=== PATIENT | male | born 1995 | race Caucasian/White ===

== ENCOUNTER 2018-09-12 15:43 | Emergency (ER) | payer SELFPAY ==
[2018-09-12 15:45] VITALS: BP 156/80; PULSE 71; RESP 18; TEMP 36.1; O2SAT 99; BMI 28.6
--- NOTE | 2018-09-12 16:06 | ED.DCSUM_ITS ---
- ER Visit Summary Date of Service: 09/12/18 Chief Complaint: Left great toe ingrown toenail History of Present Illness: The patient is a 22 M no dyspnea past medical history. Patient states for the last several days he has had pain and swelling of his left great toe. Has ingrown toenail. Says this happen before. Denies any fever. Physical Examination: Vital. HEENT exam unremarkable. Lungs clear to auscultation bilaterally. Heart regular rate and rhythm no murmur. Abdomen s oft nontender. Patient moving all 4 extremities. Neurovascular intact. Specifically left ankle nontender. Left foot palpable DP pulse. Left foot neurovascularly. Able to wiggle his toes. Normal touch sensation. His left great toe on the lateral aspect is swollen and tender consistent with a ingrown toenail. There is no lymphangitic streaking. Test Results: None Emergency Department Course and Treatment: No. Let applied to the anterior surface of the left great toe. Digital block. Undermined and removed the lateral third of the great toe toenail. Chaparro tolerated procedure well. Treatment Plan: Wound care. Keflex 4 times daily for 7 days. Return if worse. Disposition: dc Impression: Ingrown and infected right great toe toenail BDigital block by ER Right great toenail partially resected by ER This note was generated with [employer] dictation software. It may contain incorrect words, spelling, and punctuation that were not noted in review of the chart prior to signing. ED Disposition - Plan for ED Patient: Disposition: Home or Assisted Living Chief Complaint: Lower Extremity Injury Instructions: ED Ingrown Toenail Excised Prescriptions: Cephalexin [Keflex] 500 mg PO Q6 #30 cap Referrals: Geo Bowers DPM [STAFF PHYSICIAN] - 1 Week if not improving Additional Instructions: Warm soaks times great toe. Antibiotic 1 pill 4 times a day till gone. Tylenol Motrin for pain. Follow-up with the manager user interface Dr. Geo Bowers if not improving.
--- NOTE | 2018-09-12 16:10 | DCINST.ED_ITS ---
ED Disposition - Plan for ED Patient: Disposition: Home or Assisted Living Chief Complaint: Lower Extremity Injury Instructions: ED Ingrown Toenail Excised Prescriptions: Cephalexin [Keflex] 500 mg PO Q6 #30 cap Referrals: Geo Bowers DPM [STAFF PHYSICIAN] - 1 Week if not improving Additional Instructions: Warm soaks times great toe. Antibiotic 1 pill 4 times a day till gone. Tylenol Motrin for pain. Follow-up with the client support associate Dr. Geo Bowers if not improving.
[2018-09-12] MEDS: Lidocaine/Epi/Tetracaine 50 ML 1 APPLIC TOPICAL (16:12)
[2018-09-12 17:58] VITALS: RESP 16
--- NOTE | 2018-09-12 18:00 | ED.RN ---
REVIEWED D/C INSTRUCTIONS, FOLLOW UP CARE, PRESCRIPTION, AND S/S THAT WOULD WARRANT A RETURN TO THE ED WITH PT. PT VERBALIZED AN UNDERSTANDING AND DENIES FURTHER QUESTIONS FOR THIS RN. PT SKIN P/W/D, RESP EVEN AND UNLABORED, PT A&O X 3, NO DISTRESS NOTED. PT AMBULATED OUT OF ED, GAIT STEADY.
== END 2018-09-12 18:01 | disposition home or self-care (01) ==
PROVIDERS: Emergency Provider Emergency Medicine; Family Provider Pediatrics; PCP Pediatrics
DX: L60.0 Ingrowing nail (principal)
CPT/HCPCS: 11750; 99283

== ENCOUNTER 2019-06-10 10:02 | Emergency (ER) | payer MEDICAID, SELFPAY ==
[2019-06-10 10:03] VITALS: BP 131/87; PULSE 93; RESP 18; TEMP 36.4; O2SAT 98; BMI 30.7
--- NOTE | 2019-06-10 10:26 | ED.DCSUM_ITS ---
- ER Visit Summary Date of Service: 06/10/19 Chief Complaint: [Injury to right great toe] History of Present Illness: The patient is a 23 M [presents to the emergency department with an injury to his right great toe that occurred prior to arrival in the emergency department. Patient states he was coming down the steps when he slipped and fell and his foot hit a concrete wall causing a laceration to his right toe. Patient also states that for several months now he has had some lumps that he is noticed over his right breast and is concerned about. He denies any real pain to the area. Denies any trauma to his chest.] Physical Examination: [HEENT-PERRLA, EOMI. Cranial nerves II through XII grossly intact. TMs clear. Mucous membranes moist. No adenopathy. Cardiovascular-regular rate and rhythm without murmur or ectopy. Right breast- patient has some mild swelling over the areole of the right breast with small lump palpated about the 12 o'clock position of the breast. No erythema noted. No discharge from the nipple noted. No wrinkling of the skin noted. Lungs-clear to auscultation, chest wall stable without crepitus or subcu emphysema Abdomen-normoactive bowel sounds, soft, nontender, no rebound or rigidity, no peritoneal signs. Extremities-intact ?4, normal range of motion, normal pulses. Patient has superficial flap-like laceration of epidermis over the pad of the great toe. No bony tenderness on exam. No deformity. Neurovascular intact.] Test Results: [None indicated] Emergency Department Course and Treatment: Patient had a clean dressing applied to the toe there was no repair that was indicated. Regarding the enlargement of the right breast and Aereola mass I recommended follow-up with primary care and possible mammography.] Treatment Plan: [We will up with primary care physician within next 3 to 5 days.] Disposition: [Discharged home in stable condition.] Impression: [Right great toe laceration-no repair necessary Mass right breast] This note was generated with [employer] dictation software. It may contain incorrect words, spelling, and punctuation that were not noted in review of the chart prior to signing ED Disposition - Plan for ED Patient: Referrals: Phi Ramsey MD [Primary Care Provider] -
--- NOTE | 2019-06-10 10:29 | ED.DEP ---
ED Disposition - Plan for ED Patient: Instructions: LACERATION, Foot Referrals: Phi Ramsey MD [Primary Care Provider] - Cornelia Gibbs MD [STAFF PHYSICIAN] - 3-5 Days Additional Instructions: Follow up with Primary care physician as I would recommend outpatient Mammography to evaluate the swelling in the right breast
== END 2019-06-10 10:46 | disposition home or self-care (01) ==
LOC: ED 10:33
PROVIDERS: Emergency Provider Emergency Medicine; Family Provider Pediatrics; PCP Pediatrics
DX: S91.111A Laceration without foreign body of right great toe without damage to nail, initial encounter (principal); W10.9XXA Fall (on) (from) unspecified stairs and steps, initial encounter; Y93.9 Activity, unspecified; Y92.9 Unspecified place or not applicable; Y99.9 Unspecified external cause status; N63.10 Unspecified lump in the right breast, unspecified quadrant
CPT/HCPCS: 99282

== ENCOUNTER 2019-07-09 15:09 | Emergency (ER) | payer MEDICAID, SELFPAY ==
[2019-07-09 15:10] VITALS: BP 143/74; PULSE 82; RESP 16; TEMP 36.6; O2SAT 99; BMI 24.4
--- NOTE | 2019-07-09 15:30 | ED.DEP ---
ED Disposition - Plan for ED Patient: Instructions: Aphthous Ulcer Prescriptions: Naproxen [Naprosyn] 500 mg PO BID PRN #20 tablet Referrals: Phi Ramsey MD [Primary Care Provider] -
--- NOTE | 2019-07-09 15:34 | ED.DCSUM_ITS ---
- ER Visit Summary Date of Service: 07/09/19 Chief Complaint: Sore in mouth History of Present Illness: The patient is a 23 M presenting with a sore in his mouth. He states he noticed this last night. He has irritation to his left inner cheek. Denies fever. Denies other complaints. Physical Examination: Vitals are stable. Patient is afebrile. Alert no acute distress. HEENT exam: left inner cheek lesion consistent with aphthous ulcer. No fluctuance. No dental tenderness. No sublingual edema. Neck is supple. Lungs are clear and equal bilaterally. Heart is regular rate and rhythm. Extremities are unremarkable. Skin is warm and dry. Remainder of exam is unremarkable. Emergency Department Course and Treatment: Lesion is consistent with aphthous ulcer. He is given Naprosyn. Advised to follow up with his primary care physician. Advised return to ED if worsening complaints. Disposition: Discharge home Impression: Aphthous ulcer This note was generated with [employer] dictation software. It may contain incorrect words, spelling, and punctuation that were not noted in review of the chart prior to signing ED Disposition - Plan for ED Patient: Instructions: Aphthous Ulcer Prescriptions: Naproxen [Naprosyn] 500 mg PO BID PRN #20 tab Prescription Printed Referrals: Phi Ramsey MD [Primary Care Provider] -
== END 2019-07-09 15:43 | disposition home or self-care (01) ==
LOC: ED 15:29
PROVIDERS: Emergency Provider Emergency Medicine; Family Provider Pediatrics; PCP Pediatrics
DX: K12.0 Recurrent oral aphthae (principal)
CPT/HCPCS: 99282

== ENCOUNTER 2019-10-18 07:57 | Emergency (ER) | payer MEDICAID, SELFPAY ==
[2019-10-18 07:58] VITALS: BP 138/79; PULSE 100; RESP 15; TEMP 36.9; O2SAT 97; BMI 28.3
--- NOTE | 2019-10-18 08:16 | ED.VISSUMM ---
- ER Visit Summary Date of Service: 10/18/19 Chief Complaint: Vomiting and diarrhea History of Present Illness: The patient is a [address] Ramsey. He reports that he is vomiting diarrhea that began today. He began vomiting approximately 1 hour ago. He is vomited twice. No blood in his emesis. He had diarrhea 3 times in the past 3 hours. No blood in his stools or black tarry stools. He reports he has an aching lower abdominal pain is 5-10 at worst and 10-10 currently. Nothing makes this better or worse. Patient denies sick contacts. Has not been camping out of the country. No possible bad food exposure. Does not drink well water. No recent antibiotic use. Physical Examination: Vitals: Stable. Afebrile. General: Well-nourished and well-developed. Head: Normocephalic atraumatic. Neck: Supple, no lymphadenopathy. No JVD. Nontender. Cardiovascular: Regular rate and rhythm. No murmurs. Respiratory: No respiratory distress. Clear to auscultation bilaterally. Abdominal: Soft, nontender, nondistended, normal bowel sounds. No guarding, rebound, or peritoneal signs. Back: Nontender. Extremities: Nontender, no edema. Skin: Normal color, no rash. Neurologic: Alert and oriented ?3. Cranial nerves II through XII are intact. Normal strength and sensation. Psych: Normal affect. Emergency Department Course and Treatment: Patient refused an IV and fluids. He was given Zofran p.o. He is resting comfortably. Treatment Plan: Patient be discharged with Zofran. Instructed to follow-up with Dr. Chamorro in 1 to 2 days if not improving. Return to the emergency department for any worsening symptoms. Disposition: To home in improved and stable condition. Impression: 1. Vomiting/diarrhea. This note was generated with [employer] dictation software. It may contain incorrect words, spelling, and punctuation that were not noted in review of the chart prior to signing ED Disposition - Plan for ED Patient: Instructions: VOMITING AND DIARRHEA, Nonspecific (Adult) Prescriptions: Ondansetron [Zofran Odt] 4 mg PO Q8H PRN PRN #10 tablet PRN Reason: Nausea Referrals: Tenzin Chamorro DO [NON CLINICAL AFFILIATE] - 1-2 Days if not improving
[2019-10-18] MEDS: Ondansetron ODT 4 MG Tablet PO (08:29)
== END 2019-10-18 08:51 | disposition home or self-care (01) ==
PROVIDERS: Emergency Provider Emergency Medicine; PCP Pediatrics
DX: R11.2 Nausea with vomiting, unspecified (principal); R10.30 Lower abdominal pain, unspecified; R19.7 Diarrhea, unspecified; R51 Headache; J45.909 Unspecified asthma, uncomplicated
CPT/HCPCS: 99283

== ENCOUNTER 2020-07-10 14:25 | Emergency (ER) | payer MEDICAID, SELFPAY ==
[2020-07-10 14:26] VITALS: BP 132/66; PULSE 90; RESP 17; TEMP 36.4; O2SAT 98; BMI 30.3
--- NOTE | 2020-07-10 14:54 | ED.VIS.GEN ---
History of Present Illness Chief Complaint: Ear Problem Narrative: This patient is a 24-year-old male who presents with right ear pain. It began about 9:00 this morning. It is sharp. At times it feels muffled. He otherwise denies any recent illness. No fever cough congestion rhinorrhea. Past Medical History - Allergies and Home Meds Allergies/Adverse Reactions: Allergies amoxicillin Allergy (Verified 07/10/20 14:26) Unknown Penicillins [PCN] Allergy (Verified 07/10/20 14:26) Unknown Primary Care Physician: Care PhysicianPat Primary [Primary Care Provider] - Past Medical History: - - None Smoking Status: Former smoker Review of Systems All systems negative except as indicated General: Denies: Fever ENT: Reports: Right ear pain. Denies: Rhinorrhea Cardiovascular: Denies: Chest pain Respiratory: Denies: Dyspnea Gastrointestinal: Denies: Nausea, Vomiting Musculoskeletal: Denies: Myalgias, Arthralgias Skin: Denies: Rash Neurological: Denies: Headache Physical Exam Vital Signs/Narrative: Vital Signs Temp Pulse Resp BP Pulse Ox 07/10/20 14:26 97.5 F L 90 17 132/66 H 98 Inital Vital Signs reviewed: Yes General: Well nourished Head: Normocephalic Eyes: EOMI ENT: TM's clear Cardiovascular: Regular rate Respiratory: No distress Skin: Normal color Neurological: Alert Psychological: Normal affect Diagnostic/Tx/Re-eval - Medical Decision Making Examination of the bilateral tympanic membranes is normal. Patient was advised on supportive care. At this time he has no evidence of cerumen impaction otitis media or otitis externa. He was advised to use anti-inflammatories. He understands to return for new or worsening symptoms. The patient was discharged. ED Disposition - Plan for ED Patient: Disposition: Home or Assisted Living Diagnosis: Otalgia Referrals: Care Physician,No Primary [Primary Care Provider] - Additional Instructions: You presented with ear pain. There is no signs of an infection. I would recommend using an anti-inflammatory like ibuprofen or Aleve. You should return for new or worsening symptoms.
[2020-07-10 15:07] VITALS: RESP 15
== END 2020-07-10 15:09 | disposition home or self-care (01) ==
PROVIDERS: Emergency Provider Emergency Medicine
DX: H92.01 Otalgia, right ear (principal); Z87.891 Personal history of nicotine dependence
CPT/HCPCS: 99282

== ENCOUNTER 2020-11-17 11:17 | Emergency (ER) | payer MEDICAID, SELFPAY ==
[2020-11-17 11:18] VITALS: BP 145/90; PULSE 60; RESP 18; TEMP 36.4; O2SAT 100; BMI 30.6
--- NOTE | 2020-11-17 11:51 | ED.VIS.GEN ---
History of Present Illness Chief Complaint: Anxiety Informant: Patient Narrative: Patient is a 24-year-old male who presents to the emergency department for feeling nauseous in the morning. He states that he started a new job 1 week ago. He is never had a job before in the past. Once he gets to work this feeling does reside. States he does not feel overly anxious prior to going in. He feels that he is doing a fine job but does feel that the work is stressful. He does mold injections at work. He does occasionally get chest discomfort but is denying any of this right now. Fevers or chills. No change in bowel movements. He has never felt this before in the past. He does not take any medications. Does occasionally smoke marijuana. No other drug use. He has occasional alcohol use. Patient does not follow with a PCP regularly. He denies any shortness of breath. No heart palpitations. Past Medical History - Allergies and Home Meds Allergies/Adverse Reactions: Allergies amoxicillin Allergy (Verified 11/17/20 11:20) Unknown Penicillins [PCN] Allergy (Verified 11/17/20 11:20) Unknown Primary Care Physician: Care Physician,No Primary [Primary Care Provider] - Prior records reviewed: Yes Past Medical History: None Surgical History: no surgical history Smoking Status: Former smoker Drugs: Marijuana Review of Systems All systems negative except as indicated General: Denies: Chills, Fever, Sweats Eyes: Denies: Visual changes - bilaterally, Diplopia ENT: Denies: Rhinorrhea, Sore throat Cardiovascular: Denies: Chest pain, Palpitations Respiratory: Denies: Dyspnea, Cough, Dyspnea on exertion Gastrointestinal: Reports: Nausea. Denies: Abdominal pain, Vomiting, Diarrhea, Melena Genitourinary: Denies: Dysuria, Hematuria, Frequency Musculoskeletal: Denies: Back pain, Extremity Pain Skin: Denies: Rash, Wounds Neurological: Denies: Headache, Weakness, Numbness Psych: Denies: Depression Physical Exam Vital Signs/Narrative: Vital Signs Temp Pulse Resp BP Pulse Ox 11/17/20 11:18 97.6 F L 60 18 145/90 H 100 Inital Vital Signs reviewed: Yes General: Well nourished, Well developed, No Acute Distress Head: Normocephalic, Atraumatic Eyes: Perrl, EOMI ENT: Moist mucous membranes, No rhinorrhea Neck: Supple, Nontender Cardiovascular: Regular rate, Regular rhythm, No murmurs Respiratory: No distress, CTA bilaterally, Chest nontender Abdomen: Soft, Nontender, Nondistended Back: Nontender, Normal Inspection Extremities: Nontender, No edema. Negative for: Calf Tenderness Skin: Normal color, No rash Neurological: Alert, Oriented x3, Cranial nerves II-XII grossly intact, Normal Strength, Normal Sensation Psychological: Normal affect, Normal Mood Diagnostic/Tx/Re-eval - Medical Decision Making Patient presents to the ED for morning nausea that resolves once he gets to work around 2 PM. This is only started since he started his new job 1 week ago. This does sound very situational. He is denying any symptoms currently. Vital signs within normal limits except for mild hypertension. I did discuss that patient needs appropriate follow-up with the PCP. Do not feel he requires any lab work or imaging at this time. This does sound anxiety related since his job is stressful and he has been going for the past week since his symptoms have been present. I did give him a PCP from our referral list as he does not have 1. Return precautions are reviewed with him. No suicidal ideations. Will discharge home in stable condition. All questions were answered. ED Disposition - Plan for ED Patient: Disposition: Home or Assisted Living Diagnosis: Nausea Instructions: ED Anxiety Reaction Referrals: Care Physician,No Primary [Primary Care Provider] - Jessi Cary DO [STAFF PHYSICIAN] - 3-5 Days
--- NOTE | 2020-11-17 12:13 | ED.RN ---
support provided to pt at [facility].
== END 2020-11-17 12:13 | disposition home or self-care (01) ==
LOC: ED 12:01
PROVIDERS: Emergency Provider Emergency Medicine
DX: F41.9 Anxiety disorder, unspecified (principal); R11.0 Nausea; I10 Essential (primary) hypertension; Z87.891 Personal history of nicotine dependence
CPT/HCPCS: 99283

== ENCOUNTER 2020-11-24 08:18 | Emergency (ER) | payer MEDICAID, SELFPAY ==
[2020-11-24 08:19] VITALS: BP 133/74; PULSE 77; RESP 16; TEMP 36.2; O2SAT 96; BMI 29.1
--- NOTE | 2020-11-24 08:45 | ED.DCSUM_ITS ---
History of Present Illness Chief Complaint: Nausea/Vomiting Informant: Patient Narrative: 24-year-old male presenting with nausea/vomiting x1 this morning. Patient was seen on 11/17/2020 for similar symptoms. Patient is followed up with his primary care physician on an outpatient basis he provided omeprazole which he is not taking. Patient states that he ate a sausage egg and cheese sandwich just before bed last night. Patient woke up with dyspepsia and nausea. He vomited only once. He states he had some cramping in his abdomen which is now resolved. Patient denies fever, chills. Patient had recent lab work outpatient which was normal. Patient also admits to smoking marijuana daily. Past Medical History - Allergies and Home Meds Allergies/Adverse Reactions: Allergies amoxicillin Allergy (Verified 11/24/20 08:19) Unknown Penicillins [PCN] Allergy (Verified 11/24/20 08:19) Unknown Primary Care Physician: Care Physician,No Primary [Primary Care Provider] - Past Medical History: - - GERD, anxiety, migraines Surgical History: no surgical history Lives: With Family Smoking Status: Former smoker Alcohol: None Drugs: Marijuana Review of Systems General: Denies: Chills, Fever, Sweats Eyes: Denies: Visual changes - bilaterally, Diplopia ENT: Denies: Rhinorrhea, Sore throat Cardiovascular: Denies: Chest pain, Palpitations Respiratory: Denies: Dyspnea, Cough, Dyspnea on exertion Gastrointestinal: Reports: Abdominal pain, Nausea, Vomiting. Denies: Diarrhea, Constipation Genitourinary: Denies: Dysuria, Hematuria, Frequency Musculoskeletal: Denies: Back pain, Extremity Pain Skin: Denies: Rash, Wounds Neurological: Denies: Headache, Weakness, Numbness Psych: Denies: Depression, Anxiety, Suicidal thoughts, Suicidal ideations, -, - Physical Exam Vital Signs/Narrative: Vital Signs Temp Pulse Resp BP Pulse Ox 11/24/20 08:19 97.2 F L 77 16 133/74 H 96 General: Well nourished, Well developed, No Acute Distress Head: Normocephalic, Atraumatic Eyes: Perrl, EOMI ENT: Moist mucous membranes, No rhinorrhea Neck: Supple, Nontender Cardiovascular: Regular rate, Regular rhythm, No murmurs Respiratory: No distress, CTA bilaterally, Chest nontender Abdomen: Soft, Nontender, Nondistended, Normal bowel sounds Skin: Normal color, No rash. Negative for: Diaphoresis, Jaundice Neurological: Alert, Oriented x3, Cranial nerves II-XII grossly intact, Normal Strength, Normal Sensation Psychological: Normal affect, Normal Mood Diagnostic/Tx/Re-eval - Medical Decision Making 24-year-old male presenting with nausea/vomiting he has a history of recent diagnosis of GERD. He had 1 episode of vomiting and is now pain and nausea free. Patient had outpatient lab work 2 days ago which showed a white blood cell count of 5.87, hemoglobin 15.2, hematocrit 47.2, platelets 261. CMP showed bilirubin 0.4, alk phos 72, AST 18, Leukos 92, BUN 10, creatinine 1.11, potassium 4.0 GFR greater than 60. Patient was given Zofran ODT while researching lab work. After reviewing the lab work patient was offered repeat labs and possibly imaging if necessary although he declines. He feels improved after Zofran. I did psychosocial rehabilitation counselor him that with acid reflux he should try to not eat directly before bed. He is counseled to take his omeprazole daily. Patient also counseled that there is a possibility that smoking marijuana could be making him nauseous and he should discontinue this to see if this improves his nausea. Patient will follow up with his PCP on an outpatient basis. Impression: 1. Nausea vomiting 2. History of GERD 3. Abdominal cramping resolved ED Disposition - Plan for ED Patient: Disposition: Home or Assisted Living Instructions: ED Vomiting (Adult), ED GERD (Adult) Referrals: Care Physician,No Primary [Primary Care Provider] -
[2020-11-24] MEDS: Ondansetron ODT 4 MG Tablet PO (08:53)
== END 2020-11-24 09:29 | disposition home or self-care (01) ==
LOC: ED 09:08
PROVIDERS: Emergency Provider Student in an Organized Health Care Education/Training Program
DX: R11.2 Nausea with vomiting, unspecified (principal); K21.9 Gastro-esophageal reflux disease without esophagitis; F41.9 Anxiety disorder, unspecified; G43.909 Migraine, unspecified, not intractable, without status migrainosus; Z79.899 Other long term (current) drug therapy; Z87.891 Personal history of nicotine dependence
CPT/HCPCS: 99283

== ENCOUNTER 2021-02-21 17:34 | Emergency (ER) | payer MEDICAID, SELFPAY ==
[2021-02-21 17:36] VITALS: BP 120/70; PULSE 80; RESP 16; TEMP 36.7; O2SAT 99; BMI 29.0
--- NOTE | 2021-02-21 18:40 | ED.VIS.GI ---
HPI HPI - GI History of Present Illness Chief Complaint: Nausea/Vomiting/Diarrhea Informant: patient Narrative Narrative: Patient has nausea, vomiting and diarrhea. It started this morning. He has vomited every couple of hours today. He has had diarrhea with it. This afternoon he developed some abdominal cramping. He did not check his temperature at home. He denies any history of abdominal surgeries. He took nothing for his symptoms. He denies any sick contacts. He states that he feels weak PFSH PFSH Home Medications omeprazole 40 mg PO DAILY 11/24/20 [History Last Taken Unknown] ondansetron 4 mg PO Q8H PRN PRN #10 tablet 11/24/20 [Rx Last Taken Unknown] dicyclomine 20 mg PO TIDAC #20 capsule 02/21/21 [Rx Last Taken Unknown] ondansetron 8 mg PO Q8H PRN PRN #20 tab 02/21/21 [Rx Last Taken Unknown] Allergy/AdvReac Type Severity Reaction Status Date / Time amoxicillin Allergy Unknown Verified 02/21/21 17:36 Penicillins [PCN] Allergy Unknown Verified 02/21/21 17:36 Surgical History (Updated 02/21/21 @ 19:05 by Mike Mathis) History of tonsillectomy Social History Smoking Status: Former smoker ROS ROS ED Constitutional Constitutional ED: Denies chills or fever(s) Eyes Eyes: Denies blurry vision, change in vision or diplopia ENT ENT ED: Denies ear pain, rhinorrhea or sore throat Cardiovascular Cardiovascular: Denies chest pain or palpitations Respiratory/Chest Respiratory/Chest: Denies cough, dyspnea or sputum Gastrointestinal Gastrointestinal: Reports abdominal pain, diarrhea, nausea and vomiting Genitourinary Genitourinary ED: Denies dysuria, hematuria or urinary frequency Musculoskeletal Musculoskeletal: Denies back pain or neck pain Integumentary Denies change in pigmentation or rash Neurologic Neurologic: Denies headache(s), numbness or weakness Psychiatric Psychiatric: Denies anxiety or depression Endocrine Endocrinology: Denies polydipsia or polyuria EXAM Physical Exam Const Vital Signs: 02/21/21 17:36 02/21/21 19:07 02/21/21 19:09 Temperature 98.0 F 98.0 F Temperature Source Temporal Temporal Pulse Rate 80 68 79 Respiratory Rate 16 16 14 Blood Pressure 120/70 136/73 H 136/73 H Blood Pressure Mean 86 94 94 Pulse Ox 99 98 100 Oxygen Delivery Method Room Air Room Air Room Air Positive well nourished and well developed General Appearance ED: well developed and NAD HEENT Reports moist mucous membranes normocephalic and atraumatic; Negative for tenderness Eyes PERRL and EOMs intact bilaterally Neck supple and no JVD Chest Wall Chest: Negative for tenderness Resp normal respiratory effort and clear to auscultation bilaterally Effort and Inspection: Negative for respiratory distress Cardio regular rate, regular rhythm and no murmurs Rate: regular rate Rhythm: regular rhythm GI soft to palpation, non-tender and non-distended Palpation: soft Back/Spine no CVA tenderness and no thoracic nor lumbar tenderness Cervical Spine: Negative for cervical spine tenderness Extremity normal to inspection and full ROM General Extremety ED: Negative for tenderness Neuro oriented x3, CN's II-XII intact bilaterally and no sensory deficits noted Sensorium / Orientation: awake and alert Motor Exam: strength 5/5 throughout Psych mental status grossly normal Skin no rashes or lesions noted MDM MDM MDM Narrative Medical decision making narrative: Patient was given oral Zofran and Bentyl. Labs are normal. This is likely gastroenteritis. Patient will be given Bentyl and Zofran for home. Lab Data Labs: Laboratory Results - last 24 hr 02/21/21 02/21/21 18:56 18:56 WBC 8.9 RBC 5.69 Hgb 15.8 Hct 48.1 MCV 84.5 MCH 27.8 MCHC 32.8 RDW Std Deviation 39.3 RDW Coeff of Baltazar 12.7 Plt Count 220 MPV 11.0 Immature Gran % (Auto) 0.100 Neut % (Auto) 87.2 H Lymph % (Auto) 7.2 L [place] % (Auto) 5.0 Eos % (Auto) 0.3 Baso % (Auto) 0.2 Absolute Neuts (auto) 7.7 Absolute Lymphs (auto) 0.64 L Nucleated RBC % 0 Sodium 138 Potassium 3.8 Chloride 104 Carbon Dioxide 25.0 Anion Gap 9 BUN 10 Creatinine 1.12 Estim Creat Clear Calc 108.32 Est GFR (MDRD) Af Amer 104 Est GFR (MDRD) Non-Af 86 BUN/Creatinine Ratio 8.9 L Glucose 99 Calcium 9.5 Total Bilirubin 0.60 AST 11 L ALT 23 Alkaline Phosphatase 81 Total Protein 7.5 Albumin 4.2 Globulin 3.3 Albumin/Globulin Ratio 1.3 Lipase 40 L Discharge Plan Triage Chief Complaint: Nausea/Vomiting/Diarrhea ED Provider: Carl Kessler Dx/Rx/DC Orders Clinical Impression: Nausea vomiting and diarrhea Instructions: ED Vomiting and Diarrhea ... Prescriptions: New ondansetron [ondansetron] 4 MG tablet 8 mg PO Q8H PRN PRN (Reason: Nausea) Qty: 20 RF: 0 dicyclomine 10 MG capsule 20 mg PO TIDAC Qty: 20 RF: 0 No Action omeprazole 40 MG capsule,delayed release(DR/EC) 40 mg PO DAILY RF: 0 ondansetron 4 MG tablet 4 mg PO Q8H PRN PRN (Reason: Nausea) Qty: 10 RF: 0 Primary Care Provider: Jaclyn Chin Referrals: Jaclyn Chin, RODOLFO [Primary Care Provider] - Disposition Disposition: Home, self care
[2021-02-21 19:07] VITALS: BP 136/73; PULSE 68; RESP 16; O2SAT 98
[2021-02-21] MEDS: Dicyclomine 10 MG Capsule 20 MG PO (19:07)
[2021-02-21 19:08] LABS: Absolute Lymphocyte Count 0.64 X10^3/uL (0.83-4.51); Absolute Neutrophil Count 7.7 X10^3/uL (2.0-7.7); Basophil# 0.02 X10^3/uL; Basophil% 0.2 % (0-1); Eosinophil# 0.03 X10^3/uL; Eosinophils% 0.3 % (0-5); Hematocrit 48.1 % (40-54); Hemoglobin 15.8 g/dL (13.0-16.5); Lymphocyte # 0.64 X10^3/ul (0.83-4.51); Lymphocyte % 7.2 % (19-41); Mean Corp Hgb Conc 32.8 g/dL (32-36); Mean Corpuscular Hgb 27.8 pg (27.0-32.0); Mean Corpuscular Volume 84.5 fL (80-94); Monocyte# 0.44 X10^3/uL; NRBC Flagged by Analyzer 0 % (0-5); Neutrophil # 7.72 X10^3/uL (2.7-7.7); Neutrophil % 87.2 % (47-70); Platelet Count 220 K/mm3 (150-450); RBC Distribution Width CV 12.7 % (11.6-14.6); RBC Distribution Width SD 39.3 fl (35.1-43.9); Red Blood Count 5.69 M/mm3 (4.6-6.2); White Blood Count 8.9 K/mm3 (4.4-11.0)
[2021-02-21] MEDS: Ondansetron ODT 4 MG Tablet 8 MG PO (19:08)
[2021-02-21 19:09] VITALS: BP 136/73; PULSE 79; RESP 14; TEMP 36.7; O2SAT 100
[2021-02-21 19:44] LABS: ALB/GLOB Ratio 1.3 RATIO (0.9-2.4); AST(SGOT) 11 U/L (15-37); Alanine Aminotransfer ALT/SGPT 23 U/L (16-61); Albumin, Serum 4.2 g/dL (3.2-5.0); Alkaline Phosphatase 81 U/L (45-117); Anion Gap 9 (5-15); BUN 10 mg/dL (7-18); BUN/Creat Ratio 8.9 RATIO (10-20); Calcium,Total 9.5 mg/dL (8.5-10.1); Chloride 104 mmol/L (98-107); Creatinine, Serum 1.12 mg/dL (0.70-1.30); EST Glomerular Filtration Rate 86 mL/min (>60); Est Glom Filt Rate - Afr Amer 104 mL/min (>60); Estimated Creatinine Clearance 108.32 ml/min; Globulin 3.3 g/dL (2.2-4.2); Glucose 99 mg/dL (74-106); Lipase 40 U/L (73-393); Potassium 3.8 mmol/L (3.5-5.1); Protein, Total 7.5 g/dL (6.4-8.2); Sodium Level 138 mmol/L (136-145)
[2021-02-21 20:12] VITALS: BP 133/64; PULSE 74; RESP 16; TEMP 36.4; O2SAT 99
== END 2021-02-21 20:13 | disposition home or self-care (01) ==
PROVIDERS: Emergency Provider Emergency Medicine; PCP Physician Assistant
DX: R11.2 Nausea with vomiting, unspecified (principal); R19.7 Diarrhea, unspecified; R10.9 Unspecified abdominal pain; R53.1 Weakness; Z79.899 Other long term (current) drug therapy; Z87.891 Personal history of nicotine dependence
CPT/HCPCS: 80053; 83690; 85025; 99283; A4216

== ENCOUNTER 2021-03-21 14:13 | Emergency (ER) | payer MEDICAID, SELFPAY ==
[2021-03-21 14:13] VITALS: BP 139/91; PULSE 82; RESP 18; TEMP 36.1; O2SAT 98; BMI 33.5
--- NOTE | 2021-03-21 15:50 | RAD_ITS ---
STUDY: X-RAY - LEFT FOOT CLINICAL: Male, 25 years old. left great toe injury TECHNIQUE: 3 view(s) of the foot. COMPARISON: None. FINDINGS: Normal talus, calcaneus, and tarsal bones. Normal visualized subtalar, talonavicular, calcaneocuboid, tarsal and tarsometatarsal articulations. Normal metatarsi. Normal metatarsophalangeal joint of the great toe. Normal tibial and fibular sesamoid bones. Normal interphalangeal joint of the great toe. Normal phalanges of the great toe. Normal second through fifth metatarsophalangeal joints. Normal interphalangeal joints and phalanges of the lesser toes. The soft tissue structures are unremarkable. There is no demonstrated fracture. RAD/Foot min 3 Views IMPRESSION: Normal x-ray examination of the foot. Electronically Signed: Ryne Robison MD at 16:48 EDT , Service support ,
--- NOTE | 2021-03-21 16:15 | EX.ED.DYSGE1 ---
HPI History of Present Illness Chief Complaint: Lower Extremity Injury Informant: patient Narrative Narrative: Patient is a 25-year-old previously healthy male who presents to the emergency department for left great toe injury. He states that he was running last night whenever he tripped and fell like he stubbed his toe. 1 at rest the pain is only 2 out of 10 but hurts every time he tries to walk on it. Is not take anything for it. Denies any other injury. Majority the pain is over the great toe and dorsal aspect of the distal foot on that side. No pain going up the extremity. No loss of sensation. PFSH PFSH Home Medications omeprazole 40 mg PO DAILY 11/24/20 [History Last Taken Unknown] ondansetron 4 mg PO Q8H PRN PRN #10 tablet 11/24/20 [Rx Last Taken Unknown] dicyclomine 20 mg PO TIDAC #20 capsule 02/21/21 [Rx Last Taken Unknown] ondansetron 8 mg PO Q8H PRN PRN #20 tab 02/21/21 [Rx Last Taken Unknown] Allergy/AdvReac Type Severity Reaction Status Date / Time amoxicillin Allergy Unknown Verified 03/21/21 14:28 Penicillins [PCN] Allergy Unknown Verified 03/21/21 14:28 Surgical History (Updated 02/21/21 @ 19:05 by Mike Mathis) History of tonsillectomy Social History Smoking Status: Former smoker ROS ROS ED Constitutional Constitutional ED: Denies chills or fever(s) ENT ENT ED: Denies epistaxis Cardiovascular Cardiovascular: Denies chest pain Respiratory/Chest Respiratory/Chest: Denies cough or dyspnea Gastrointestinal Gastrointestinal: Denies abdominal pain, nausea or vomiting Musculoskeletal Musculoskeletal: Reports other Details: Toe pain ; Denies back pain or neck pain Integumentary Denies abscess or rash Neurologic Neurologic: Denies dizziness, headache(s) or weakness EXAM Physical Exam Const Vital Signs: 03/21/21 14:13 03/21/21 17:12 Temperature 97 F L Temperature Source Temporal Pulse Rate 82 Respiratory Rate 18 16 Blood Pressure 139/91 H Blood Pressure Mean 107 Pulse Ox 98 Oxygen Delivery Method Room Air Positive well nourished and well developed General Appearance ED: well developed and NAD HEENT Reports normocephalic, head/scalp atraumatic and moist mucous membranes Eyes PERRL and EOMs intact bilaterally Neck supple Chest Wall inspection of chest normal Resp normal respiratory effort and clear to auscultation bilaterally Auscultation: Negative for rales, rhonchi or wheezes Cardio regular rate, regular rhythm and no murmurs Extremity Extremity Narrative: Full range of motion of toes and left foot. There is some swelling and erythema over the right proximal joint of the great toe. Sensation intact. Brisk capillary refill. 2+ DP pulse. No pain over the base of fifth metatarsal. No ankle pain. Neuro no sensory deficits noted Sensorium / Orientation: alert Motor Exam: strength 5/5 throughout Psych mental status grossly normal Skin no rashes or lesions noted MDM MDM MDM Narrative Medical decision making narrative: Patient presents to the emerge department for left great toe pain after stubbing it while running yesterday. Patient in no distress on exam. Will check x-ray of the foot. Patient's x-ray did not reveal acute traumatic findings. Will recommend symptomatic treatment in the meantime. He can weight-bear as tolerated. Recommend RICE as well as Tylenol/ibuprofen. He is discharged home in stable condition. He is to follow-up with his PCP. Return precautions reviewed. He understands and is agreeable this plan. Radiography Diagnostic Testing: Radiology Impression Foot X-Ray 03/21/21 15:50 IMPRESSION: Normal x-ray examination of the foot. Electronically Signed: Ryne Robison MD at 16:48 EDT , Service support , X-ray of the foot interpreted by myself. No obvious fracture or dislocation appreciated. Discharge Plan Triage Chief Complaint: Lower Extremity Injury ED Provider: Lance Moctezuma Dx/Rx/DC Orders Clinical Impression: Injury of toe Instructions: ED Toe Sprain Prescriptions: No Action omeprazole 40 MG capsule,delayed release(DR/EC) 40 mg PO DAILY RF: 0 ondansetron 4 MG tablet 4 mg PO Q8H PRN PRN (Reason: Nausea) Qty: 10 RF: 0 ondansetron [ondansetron] 4 MG tablet 8 mg PO Q8H PRN PRN (Reason: Nausea) Qty: 20 RF: 0 dicyclomine 10 MG capsule 20 mg PO TIDAC Qty: 20 RF: 0 Primary Care Provider: Jaclyn Chin Referrals: Jaclyn Chin, [place] [Primary Care Provider] - 1 Week if not improving Disposition Disposition: Home, Self Care Discharge Date/Time: 03/21/21 17:12
[2021-03-21 17:12] VITALS: RESP 16
== END 2021-03-21 17:12 | disposition home or self-care (01) ==
LOC: ED 17:07
PROVIDERS: Emergency Provider Emergency Medicine; PCP Physician Assistant
DX: S99.922A Unspecified injury of left foot, initial encounter (principal); W01.0XXA Fall on same level from slipping, tripping and stumbling without subsequent striking against object, initial encounter; Y93.02 Activity, running; Y92.9 Unspecified place or not applicable; Y99.9 Unspecified external cause status; Z87.891 Personal history of nicotine dependence; Z79.899 Other long term (current) drug therapy
CPT/HCPCS: 73630; 99283

== ENCOUNTER 2021-09-10 08:00 | Emergency (ER) | payer MEDICAID, SELFPAY ==
[2021-09-10 08:01] VITALS: BP 129/78; PULSE 59; RESP 16; TEMP 36.6; O2SAT 98; BMI 33.5
--- NOTE | 2021-09-10 08:22 | ED.VIS.GI ---
HPI HPI - GI History of Present Illness Chief Complaint: Abd Pain Informant: patient Abdominal Pain/Flank Pain Onset: Hours (6) Context: Sudden Onset Timing: Continuous Quality: Aching and Cramping Location: Diffuse Worsened by: - (Laying down and laying on left side) Relieved by: Nothing Nausea/Vomiting/Emesis GI Symptom: Negative for Nausea and Vomiting Quality: Negative for Coffee ground and Hematemesis Diarrhea/Melena/Hematochezia GI Symptom: Negative for Diarrhea, Melena and Hematochezia Stool Quality: Positive for Watery Narrative Narrative: Patient presents with nausea, vomiting, diarrhea, and abdominal pain that began approximately 6 hours prior to arrival. Patient states his pain is cramping and aching. Patient states that is diffuse across his abdomen. Patient states it is worse when he lays down and lays on his left side. Patient states nothing seems to help with it. Patient denies any melena or hematochezia. Patient denies any hematemesis or coffee-ground emesis. Patient denies any urinary complaints. Patient admits to marijuana use approximately 9 hours prior to arrival. [facility] Medical History no medical history no medical history Home Medications NK 09/10/21 [History Last Taken Unknown] Allergy/AdvReac Type Severity Reaction Status Date / Time amoxicillin Allergy Unknown Verified 09/10/21 08:03 Penicillins [PCN] Allergy Unknown Verified 09/10/21 08:03 Surgical History History of tonsillectomy Social History Smoking Status: Former smoker ROS ROS ED Constitutional Constitutional ED: Reports chills and subjective; Denies fever(s) Eyes Eyes: Denies blurry vision or change in vision ENT ENT ED: Denies rhinorrhea or sore throat Cardiovascular Cardiovascular: Denies chest pain or palpitations Respiratory/Chest Respiratory/Chest: Denies cough or dyspnea Gastrointestinal Gastrointestinal: Reports abdominal pain, diarrhea, nausea and vomiting; Denies melena Genitourinary Genitourinary ED: Denies dysuria or hematuria Musculoskeletal Musculoskeletal: Denies back pain or neck pain Integumentary Denies abscess or rash Neurologic Neurologic: Reports headache(s); Denies weakness Allergic/Immunologic Allergic/Immunologic ED: Denies mouth swelling or urticaria EXAM Physical Exam Const Vital Signs: 09/10/21 08:01 Temperature 97.8 F Temperature Source Temporal Pulse Rate 59 L Respiratory Rate 16 Blood Pressure 129/78 H Blood Pressure Mean 95 Pulse Ox 98 Oxygen Delivery Method Room Air Positive well nourished and well developed General Appearance ED: well developed HEENT Reports moist mucous membranes Neck supple and no JVD Resp normal respiratory effort and clear to auscultation bilaterally Cardio regular rate, regular rhythm and no murmurs GI normal to inspection, nondistended, normoactive bowel sounds Palpation: soft and tender epigastric and LUQ; Negative for guarding or rebound tenderness present Extremity normal to inspection General Extremety ED: Negative for edema or tenderness General Extremity: Negative for edema Neuro oriented x3, CN's II-XII intact bilaterally and no sensory deficits noted Sensorium / Orientation: alert Motor Exam: strength 5/5 throughout Psych mental status grossly normal Skin no rashes or lesions noted MDM MDM MDM Narrative Medical decision making narrative: Please given Zofran. CBC and comprehensive metabolic profile were within normal limits. Lipase was normal. Patient is feeling better on reevaluation. Patient was advised of his findings. Patient was instructed to start with small amounts of liquids and advance his diet as tolerated. Patient was instructed to follow-up with his primary care physician in 3 to 5 days. Patient understood and was agreeable with the plan. All questions were answered. Lab Data Attestation: I reviewed the patient's lab results. Labs: Laboratory Results - last 24 hr 09/10/21 09/10/21 08:46 08:46 WBC 7.4 RBC 5.23 Hgb 14.4 Hct 44.0 MCV 84.1 MCH 27.5 MCHC 32.7 RDW Std Deviation 38.5 RDW Coeff of Baltazar 12.6 Plt Count 236 MPV 11.2 Immature Gran % (Auto) 0.300 Neut % (Auto) 69.9 Lymph % (Auto) 19.4 [place] % (Auto) 8.7 Eos % (Auto) 1.4 Baso % (Auto) 0.3 Absolute Neuts (auto) 5.2 Absolute Lymphs (auto) 1.43 Nucleated RBC % 0 Sodium 143 Potassium 3.9 Chloride 109 H Carbon Dioxide 28.0 Anion Gap 6 BUN 11 Creatinine 1.13 Estim Creat Clear Calc 107.36 Est GFR (MDRD) Af Amer 102 Est GFR (MDRD) Non-Af 84 BUN/Creatinine Ratio 9.7 L Glucose 111 H Calcium 9.2 Total Bilirubin 0.30 AST 11 L ALT 22 Alkaline Phosphatase 73 Total Protein 6.9 Albumin 3.8 Globulin 3.1 Albumin/Globulin Ratio 1.2 Lipase 79 Discharge Plan Triage Chief Complaint: Abd Pain ED Provider: James Alarcon Dx/Rx/DC Orders Clinical Impression: Nausea vomiting and diarrhea Instructions: ED Vomiting (Adult) Prescriptions: No Action NK RF: 0 Primary Care Provider: Jaclyn Chin Referrals: Jaclyn Chin PA [Primary Care Provider] - 3-5 Days Disposition Disposition: Home, Self Care
[2021-09-10 08:55] LABS: Absolute Lymphocyte Count 1.43 X10^3/uL (0.83-4.51); Absolute Neutrophil Count 5.2 X10^3/uL (2.0-7.7); Basophil# 0.02 X10^3/uL; Basophil% 0.3 % (0-1); Eosinophils% 1.4 % (0-5); Hemoglobin 14.4 g/dL (13.0-16.5); Lymphocyte # 1.43 X10^3/ul (0.83-4.51); Lymphocyte % 19.4 % (19-41); Mean Corp Hgb Conc 32.7 g/dL (32-36); Mean Corpuscular Hgb 27.5 pg (27.0-32.0); Mean Corpuscular Volume 84.1 fL (80-94); Mean Platelet Vol. 11.2 fl (6.2-12.0); Monocyte# 0.64 X10^3/uL; Monocyte% 8.7 % (0-10); NRBC Flagged by Analyzer 0 % (0-5); Neutrophil # 5.15 X10^3/uL (2.7-7.7); Neutrophil % 69.9 % (47-70); Platelet Count 236 K/mm3 (150-450); RBC Distribution Width CV 12.6 % (11.6-14.6); RBC Distribution Width SD 38.5 fl (35.1-43.9); Red Blood Count 5.23 M/mm3 (4.6-6.2); White Blood Count 7.4 K/mm3 (4.4-11.0)
[2021-09-10 09:11] LABS: ALB/GLOB Ratio 1.2 RATIO (0.9-2.4); AST(SGOT) 11 U/L (15-37); Alanine Aminotransfer ALT/SGPT 22 U/L (16-61); Albumin, Serum 3.8 g/dL (3.2-5.0); Alkaline Phosphatase 73 U/L (45-117); Anion Gap 6 (5-15); BUN 11 mg/dL (7-18); BUN/Creat Ratio 9.7 RATIO (10-20); Calcium,Total 9.2 mg/dL (8.5-10.1); Chloride 109 mmol/L (98-107); Creatinine, Serum 1.13 mg/dL (0.70-1.30); EST Glomerular Filtration Rate 84 mL/min (>60); Est Glom Filt Rate - Afr Amer 102 mL/min (>60); Estimated Creatinine Clearance 107.36 ml/min; Globulin 3.1 g/dL (2.2-4.2); Glucose 111 mg/dL (74-106); Lipase 79 U/L (73-393); Potassium 3.9 mmol/L (3.5-5.1); Protein, Total 6.9 g/dL (6.4-8.2); Sodium Level 143 mmol/L (136-145)
[2021-09-10 10:01] VITALS: BP 118/78; PULSE 89; RESP 16; TEMP 36.9; O2SAT 98
[2021-09-10] MEDS: Ondansetron 4 MG/2 ML Vial IV (10:14)
== END 2021-09-10 10:17 | disposition home or self-care (01) ==
PROVIDERS: Emergency Provider Emergency Medicine; PCP Physician Assistant; Visit Provider Emergency Medicine
DX: R11.2 Nausea with vomiting, unspecified (principal); R19.7 Diarrhea, unspecified; R10.84 Generalized abdominal pain; Z87.891 Personal history of nicotine dependence
CPT/HCPCS: 80053; 83690; 85025; 96374; 99283; A4216; J2405

== ENCOUNTER 2022-03-07 19:27 | Emergency (ER) | payer MEDICAID, SELFPAY ==
[2022-03-07 19:27] VITALS: BP 121/73; PULSE 95; RESP 16; TEMP 37.3; O2SAT 99; BMI 31.5
--- NOTE | 2022-03-07 21:33 | EX.ED.DYSGE1 ---
HPI History of Present Illness Chief Complaint: General Illness Informant: patient Narrative Narrative: Presenting after awakening with chills a.m. this morning. Went back to sleep waking with headache at noon. Took some Tylenol at 1230. Since then some diarrhea. No nausea or vomiting. No dyspnea or cough. No loss of taste or smell. He states his friend had COVID a week ago he was around her yesterday however she did vaccinated. Denies any past medical history. PFSH PFSH Home Medications nirmatrelvir 300 mg (150 mg x 2)-ritonavir 100 mg tablet (EUA) (Paxlovid 300 mg () See Rx Instructions PO .COMPLEX #30 tabs 03/07/22 [Rx Last Taken Unknown] Allergy/AdvReac Type Severity Reaction Status Date / Time amoxicillin Allergy Unknown Verified 03/07/22 19:30 Penicillins [PCN] Allergy Unknown Verified 03/07/22 19:30 Surgical History History of tonsillectomy Social History Smoking Status: Former smoker ROS ROS ED Constitutional Constitutional ED: Reports chills; Denies fever(s) or sweats Eyes Eyes: Denies change in vision ENT ENT ED: Denies dysphagia or sore throat Cardiovascular Cardiovascular: Denies chest pain, leg edema, palpitations or racing heartbeat Respiratory/Chest Respiratory/Chest: Denies cough, dyspnea or dyspnea on exertion Gastrointestinal Gastrointestinal: Reports diarrhea; Denies abdominal pain, nausea or vomiting Genitourinary Genitourinary ED: Denies dysuria, hematuria or urinary frequency Musculoskeletal Musculoskeletal: Denies back pain, extremity pain or neck pain Integumentary Denies rash or wounds Neurologic Neurologic: Reports headache(s); Denies paresthesias or weakness EXAM Physical Exam Const Vital Signs: 03/07/22 19:27 03/07/22 19:36 Temperature 99.2 F H Temperature Source Temporal Pulse Rate 95 Respiratory Rate 16 Respiratory Effort Normal Non-Labored Respiratory Pattern Normal Blood Pressure 121/73 H Blood Pressure Mean 89 Pulse Ox 99 Oxygen Delivery Method Room Air Positive well nourished and well developed General Appearance ED: well developed and NAD HEENT Reports moist mucous membranes normocephalic and atraumatic Eyes PERRL, EOMs intact bilaterally and conjunctivae normal General Eye ED: Yes normal appearance of both eyes Neck no lymphadenopathy and supple General: Negative for tenderness Chest Wall Chest: Negative for tenderness Resp normal respiratory effort and normal air movement Effort and Inspection: symmetric chest movement; Negative for respiratory distress Cardio regular rate, regular rhythm and no murmurs Peripheral Pulses: pulses 2+ throughout GI normal to inspection, nondistended, normoactive bowel sounds and non-tender Palpation: Negative for guarding or rebound tenderness present Back/Spine no CVA tenderness and no thoracic nor lumbar tenderness Extremity normal to inspection General Extremety ED: Negative for edema or tenderness General Extremity: Negative for edema Neuro oriented x3 and no sensory deficits noted Sensorium / Orientation: awake and alert Skin no rashes or lesions noted and no wounds MDM MDM MDM Narrative Medical decision making narrative: Patient nontoxic vital signs stable. He is tolerating oral intake. He has no meningismal findings on exam. Headache is improving from his Tylenol earlier. We will treat with ibuprofen. COVID test returned positive. Day 1 of symptoms offer antiviral treatment with Paxlovid. He would like the medications. This was sent to his pharmacy. Return precautions discussed. All questions were answered. Discharge Plan Triage Chief Complaint: General Illness ED Provider: Darrick Sánchez Dx/Rx/DC Orders Clinical Impression: COVID-19 virus infection, Diarrhea, Headache Instructions: Coronavirus Disease 2019 (COVID-19): Caring for Yourself or Others Prescriptions: New Paxlovid (EUA) 300 mg (150 mg x 2)-100 mg tablet See Rx Instructions .ROUTE .COMPLEX Qty: 30 0RF Rx Instructions: take TWO 150 mg tablets of nirmatrelvir with ONE 100 mg tablet of ritonavir twice daily for 5 days Primary Care Provider: Jaclyn Chin Referrals: Jaclyn Chin PA [Primary Care Provider] - 1 Week Disposition Disposition: Home, Self Care Discharge Date/Time: 03/07/22 22:59
[2022-03-07] MEDS: Ibuprofen 600 MG Tablet PO (21:39)
--- NOTE | 2022-03-07 22:19 | ED.RN ---
Shailesh in lab calls with + covid result. Shailesh states he used the wrong kit and can no longer test for flu on the swab and that patient would need re-swabbed for flu. Dr Sánchez notified and states he does not need the flu swab.
== END 2022-03-07 22:59 | disposition home or self-care (01) ==
PROVIDERS: Emergency Provider Emergency Medicine; PCP Physician Assistant; Visit Provider Emergency Medicine
DX: U07.1 COVID-19 (principal); R19.7 Diarrhea, unspecified; Z87.891 Personal history of nicotine dependence
CPT/HCPCS: 87428; 99283

== ENCOUNTER 2023-01-29 07:31 | Emergency (ER) | payer MEDICAID, SELFPAY ==
[2023-01-29 07:32] VITALS: BP 170/118; PULSE 113; RESP 18; TEMP 35.7; O2SAT 97; BMI 25.5
--- NOTE | 2023-01-29 07:40 | EX.ED.DYSGE1 ---
HPI History of Present Illness Chief Complaint: Nausea/Vomiting Informant: patient Onset/Context/Timing Onset: Days (3 days) Context: Gradual Onset Narrative Narrative: Patient presents with 3-day history of nausea and vomiting. He states he feels the urge to use the restroom but just has mild diarrhea when he goes. No documented fever. PFSH PFSH Medical History no medical history no medical history Home Medications nirmatrelvir 300 mg (150 mg x2)-ritonavir 100 mg tablet,dose pack(EUA) (Paxlovid) See Rx Instructions PO .COMPLEX #30 tabs 03/07/22 [Rx Last Taken Unknown] ondansetron 4 mg disintegrating tablet 4 mg PO Q8H PRN PRN Nausea #10 tabs 01/29/23 [Rx Last Taken Unknown] Allergy/AdvReac Type Severity Reaction Status Date / Time amoxicillin Allergy Unknown Verified 01/29/23 07:39 Penicillins [PCN] Allergy Unknown Verified 01/29/23 07:39 Surgical History History of tonsillectomy Social History Smoking Status: Former smoker ROS ROS ED Constitutional Constitutional ED: Denies chills or fever(s) Eyes Eyes: Denies change in vision or discharge from eye(s) ENT ENT ED: Denies discharge from eye(s), rhinorrhea or sore throat Cardiovascular Cardiovascular: Denies chest pain or palpitations Respiratory/Chest Respiratory/Chest: Denies cough or dyspnea Gastrointestinal Gastrointestinal: Reports abdominal pain, diarrhea, nausea and vomiting Genitourinary Genitourinary ED: Denies dysuria Musculoskeletal Musculoskeletal: Denies back pain or extremity pain Integumentary Denies Abrasions or rash Neurologic Neurologic: Denies headache(s) or weakness Psychiatric Psychiatric: Denies anxiety or depression Allergic/Immunologic Allergic/Immunologic ED: Denies lip swelling or urticaria EXAM Physical Exam Const Vital Signs: 01/29/23 07:32 Temperature 96.2 F L Temperature Source Temporal Pulse Rate 113 H Respiratory Rate 18 Blood Pressure 170/118 H Blood Pressure Mean 135 Pulse Ox 97 Oxygen Delivery Method Room Air Positive well nourished and well developed General Appearance ED: well developed HEENT Reports normocephalic and head/scalp atraumatic Eyes PERRL and EOMs intact bilaterally Neck supple Chest Wall inspection of chest normal and palpation of chest normal Resp normal respiratory effort and clear to auscultation bilaterally Cardio regular rate and regular rhythm GI non-tender Auscultation: hypoactive bowel sounds Palpation: soft Extremity normal to inspection Neuro oriented x3 and no sensory deficits noted Sensorium / Orientation: alert Motor Exam: strength 5/5 throughout Psych mental status grossly normal Skin no rashes or lesions noted MDM MDM MDM Narrative Medical decision making narrative: Patient given IV fluids along with Zofran. Labwork obtained to evaluate for leukocytosis, anemia, and electrolyte derangement. Lab Data Attestation: I reviewed the patient's lab results. Labs: Laboratory Results - last 24 hr 01/29/23 01/29/23 07:45 07:45 WBC 4.4 RBC 5.57 Hgb 15.4 Hct 47.7 MCV 85.6 MCH 27.6 MCHC 32.3 RDW Std Deviation 38.7 RDW Coeff of Baltazar 12.5 Plt Count 237 MPV 11.1 Immature Gran % (Auto) 0.000 Neut % (Auto) 52.1 Lymph % (Auto) 34.7 [place] % (Auto) 9.6 Eos % (Auto) 2.5 Baso % (Auto) 1.1 H Absolute Neuts (auto) 2.3 Absolute Lymphs (auto) 1.52 Nucleated RBC % 0 Sodium 141 Potassium 3.8 Chloride 106 Carbon Dioxide 28.0 Anion Gap 7 BUN 10 Creatinine 1.19 Estim Creat Clear Calc 100.19 Est GFR (MDRD) Af Amer 95 Est GFR (MDRD) Non-Af 79 BUN/Creatinine Ratio 8.4 L Glucose 107 H Calcium 9.5 Total Bilirubin 0.90 Direct Bilirubin 0.26 AST 14 L ALT 22 Alkaline Phosphatase 56 Total Protein 7.6 Albumin 4.5 Globulin 3.1 Treatment and Re-Evaluation :: CBC and chemistry studies are unremarkable. LFTs are normal. On repeat evaluation nausea is improved and he is able to tolerate p.o. fluids. At this time I do not believe patient has evidence of cholecystitis, pancreatitis, or appendicitis based on his exam and lab findings. I do not feel imaging is needed at this time. He will be treated with Zofran at home and return instructions provided. Discharge Plan Triage Chief Complaint: Nausea/Vomiting Other Complaint: Constipation ED Provider: Denia Koehler Dx/Rx/DC Orders Clinical Impression: Gastroenteritis Instructions: ED Gastroenteritis, Viral (Adult) Prescriptions: New ondansetron 4 mg tablet,disintegrating 4 mg PO Q8H PRN PRN (Reason: Nausea) Qty: 10 0RF No Action Paxlovid (EUA) 300 mg (150 mg x 2)-100 mg tablet See Rx Instructions .ROUTE .COMPLEX Qty: 30 0RF Rx Instructions: take TWO 150 mg tablets of nirmatrelvir with ONE 100 mg tablet of ritonavir twice daily for 5 days Primary Care Provider: Jaclyn Chin Referrals: Jaclyn Chin, PA [Primary Care Provider] - 3-5 Days if not improving Disposition Disposition: Home, Self Care
[2023-01-29] MEDS: Ondansetron 4 MG/2 ML Vial IV (07:50)
[2023-01-29] MEDS: 0.9% Normal Saline 1,000 ML 1000 ML IV (07:50)
[2023-01-29 08:00] LABS: Absolute Lymphocyte Count 1.52 X10^3/uL (0.83-4.51); Absolute Neutrophil Count 2.3 X10^3/uL (2.0-7.7); Basophil# 0.05 X10^3/uL; Basophil% 1.1 % (0-1); Eosinophil# 0.11 X10^3/uL; Eosinophils% 2.5 % (0-5); Hematocrit 47.7 % (40-54); Hemoglobin 15.4 g/dL (13.0-16.5); Lymphocyte # 1.52 X10^3/ul (0.83-4.51); Lymphocyte % 34.7 % (19-41); Mean Corp Hgb Conc 32.3 g/dL (32-36); Mean Corpuscular Hgb 27.6 pg (27.0-32.0); Mean Corpuscular Volume 85.6 fL (80-94); Mean Platelet Vol. 11.1 fl (6.2-12.0); Monocyte# 0.42 X10^3/uL; Monocyte% 9.6 % (0-10); NRBC Flagged by Analyzer 0 % (0-5); Neutrophil # 2.28 X10^3/uL (2.7-7.7); Neutrophil % 52.1 % (47-70); Platelet Count 237 K/mm3 (150-450); RBC Distribution Width CV 12.5 % (11.6-14.6); RBC Distribution Width SD 38.7 fl (35.1-43.9); Red Blood Count 5.57 M/mm3 (4.6-6.2); White Blood Count 4.4 K/mm3 (4.4-11.0)
[2023-01-29 08:17] LABS: AST(SGOT) 14 U/L (15-37); Alanine Aminotransfer ALT/SGPT 22 U/L (16-61); Albumin, Serum 4.5 g/dL (3.2-5.0); Alkaline Phosphatase 56 U/L (45-117); Anion Gap 7 (5-15); BUN 10 mg/dL (7-18); BUN/Creat Ratio 8.4 RATIO (10-20); Bilirubin, Direct 0.26 mg/dL (0.00-0.30); Calcium,Total 9.5 mg/dL (8.5-10.1); Chloride 106 mmol/L (98-107); Creatinine, Serum 1.19 mg/dL (0.70-1.30); EST Glomerular Filtration Rate 79 mL/min (>60); Est Glom Filt Rate - Afr Amer 95 mL/min (>60); Estimated Creatinine Clearance 100.19 ml/min; Globulin 3.1 g/dL (2.2-4.2); Glucose 107 mg/dL (74-106); Potassium 3.8 mmol/L (3.5-5.1); Protein, Total 7.6 g/dL (6.4-8.2); Sodium Level 141 mmol/L (136-145)
[2023-01-29 09:55] VITALS: BP 124/69; PULSE 67; RESP 14; O2SAT 98
== END 2023-01-29 09:57 | disposition home or self-care (01) ==
PROVIDERS: Emergency Provider Emergency Medicine; PCP Physician Assistant; Visit Provider Emergency Medicine
DX: K52.9 Noninfective gastroenteritis and colitis, unspecified (principal); Z87.891 Personal history of nicotine dependence
CPT/HCPCS: 80048; 80076; 85025; 96361; 96374; 99283; J7030; A4216; J2405

== ENCOUNTER 2023-02-10 01:33 | Emergency (ER) | payer MEDICAID, SELFPAY ==
[2023-02-10 01:34] VITALS: BP 136/86; PULSE 98; RESP 18; TEMP 36.1; O2SAT 97; BMI 25.2
--- NOTE | 2023-02-10 02:23 | EDS_ITS ---
HPI History of Present Illness Chief Complaint: Ear Problem Narrative Narrative: Patient is a 27-year-old male who is otherwise healthy who states that he went swimming roughly 4 to 5 days ago and this morning woke with increased pain to the right ear. He states that he has difficulty hearing out of it and there was slight discharge present. He denies any recent trauma. He denies any fevers or chills or known sick contacts. However secondary to the pain he is concerned for infection and therefore comes in for evaluation PFSH [facility] Home Medications cefdinir 300 mg capsule 300 mg PO BID 10 days #20 caps 02/10/23 [Rx Last Taken Unknown] [id number] 3.3 mg-3 mg-10 mg-0.5 mg/mL ear drops,susp (Cortisporin-TC) 5 drp RIGHT EAR TID 10 days #10 mL 02/10/23 [Rx Last Taken Unknown] Allergy/AdvReac Type Severity Reaction Status Date / Time amoxicillin Allergy Unknown Verified 01/29/23 07:39 Penicillins [PCN] Allergy Unknown Verified 01/29/23 07:39 Surgical History History of tonsillectomy Social History Smoking Status: Never smoker ROS ROS ED Constitutional Constitutional ED: Denies chills or fever(s) ENT ENT ED: Reports ear pain right; Denies rhinorrhea or sore throat Cardiovascular Cardiovascular: Denies chest pain Respiratory/Chest Respiratory/Chest: Denies cough or dyspnea Gastrointestinal Gastrointestinal: Denies abdominal pain, diarrhea, nausea or vomiting Genitourinary Genitourinary ED: Denies dysuria Musculoskeletal Musculoskeletal: Denies myalgias Integumentary Denies rash Neurologic Neurologic: Denies headache(s) Hematologic/Lymphatic Hematologic/Lymphatic: Denies easy bleeding or easy bruising EXAM Physical Exam Const Vital Signs: 02/10/23 01:34 Temperature 97 F L Temperature Source Temporal Pulse Rate 98 Respiratory Rate 18 Blood Pressure 136/86 H Blood Pressure Mean 102 Pulse Ox 97 Oxygen Delivery Method Room Air Positive well nourished and well developed General Appearance ED: well developed HEENT HEENT Narrative: Left canal and TM are normal. The right canal is erythematous and edematous with scant amount of discharge. The tympanic membrane is erythematous and bulging with positive air-fluid level. No obvious rupture of the tympanic membrane noted. There is no pain with palpation of either mastoid. There is increased pain with external ambulation of the right ear and there is positive preauricular lymphadenopathy noted. No changes to suggest malignant otitis externa. Eyes PERRL and EOMs intact bilaterally Neck supple Resp normal respiratory effort and clear to auscultation bilaterally Cardio regular rate and regular rhythm Extremity normal to inspection Neuro oriented x3 and CN's II-XII intact bilaterally Sensorium / Orientation: alert Psych mental status grossly normal Skin no rashes or lesions noted MDM MDM MDM Narrative Medical decision making narrative: Patient presented to the ER with stable vitals. Differential diagnosis is otitis media versus otitis externa versus eustachian tube dysfunction versus mastoiditis versus malignant otitis externa. By exam he does not have soft tissue changes to suggest malignant otitis and there is no pain on palpation over the mastoids going against acute mastoiditis. By exam he has asymmetric changes to the right versus left canal concerning for otitis externa especially with his recent history of swimming. However as the changes also encompassed the tympanic membrane there is concern for secondary otitis media. Because of this patient will be both on antibiotic drops as well as oral antibiotics but as he has no signs of systemic infection is otherwise safe for discharge. History & Record Review Discussion w/independent historian: Patient Discharge Plan Triage Chief Complaint: Ear Problem ED Provider: Shawn Wynne Dx/Rx/DC Orders Clinical Impression: Acute serous otitis media, right ear, Otitis externa of right ear Instructions: ED Otitis Media Antibiotic ..., ED External Ear Infection (Adult) Prescriptions: New cefdinir 300 mg capsule 300 mg PO BID 10 Days Qty: 20 0RF Cortisporin-TC 3.3-3-10-0.5 mg/mL drops,suspension 5 drp RIGHT EAR TID 10 Days Qty: 10 0RF Primary Care Provider: Jaclyn Chin Referrals: Jaclyn Chin, RODOLFO [Primary Care Provider] - Disposition Disposition: Home, Self Care Discharge Date/Time: 02/10/23 02:56
[2023-02-10] MEDS: Cefdinir 300 MG Capsule PO (02:51)
[2023-02-10] MEDS: dexAMETHasone 10 MG/ML Vial PO.IVFORM (02:51)
== END 2023-02-10 02:56 | disposition home or self-care (01) ==
PROVIDERS: Emergency Provider Emergency Medicine; PCP Physician Assistant; Visit Provider Emergency Medicine
DX: H65.01 Acute serous otitis media, right ear (principal); H60.91 Unspecified otitis externa, right ear
CPT/HCPCS: 99283

== ENCOUNTER 2023-05-10 09:48 | Emergency (ER) | payer MEDICAID, SELFPAY ==
[2023-05-10 09:49] VITALS: BP 111/80; PULSE 87; RESP 16; TEMP 35.9; O2SAT 100; BMI 22.7
[2023-05-10 10:39] VITALS: BP 112/43; PULSE 48; RESP 16; TEMP 36.8; O2SAT 97
[2023-05-10 10:48] LABS: Absolute Lymphocyte Count 1.59 X10^3/uL (0.83-4.51); Absolute Neutrophil Count 2.5 X10^3/uL (2.0-7.7); Basophil# 0.04 X10^3/uL; Basophil% 0.9 % (0-1); Eosinophil# 0.09 X10^3/uL; Eosinophils% 1.9 % (0-5); Hematocrit 46.8 % (40-54); Hemoglobin 15.5 g/dL (13.0-16.5); Lymphocyte # 1.59 X10^3/ul (0.83-4.51); Lymphocyte % 33.8 % (19-41); Mean Corp Hgb Conc 33.1 g/dL (32-36); Mean Corpuscular Hgb 28.2 pg (27.0-32.0); Mean Corpuscular Volume 85.1 fL (80-94); Mean Platelet Vol. 11.7 fl (6.2-12.0); Monocyte# 0.47 X10^3/uL; NRBC Flagged by Analyzer 0 % (0-5); Neutrophil % 53.2 % (47-70); Platelet Count 220 K/mm3 (150-450); RBC Distribution Width CV 12.9 % (11.6-14.6); RBC Distribution Width SD 39.9 fl (35.1-43.9); White Blood Count 4.7 K/mm3 (4.4-11.0)
[2023-05-10 10:54] LABS: Anion Gap 6 (5-15); BUN 11 mg/dL (7-18); BUN/Creat Ratio 10.6 RATIO (10-20); Calcium,Total 9.9 mg/dL (8.5-10.1); Chloride 106 mmol/L (98-107); Creatinine, Serum 1.04 mg/dL (0.70-1.30); EST Glomerular Filtration Rate 92 mL/min (>60); Est Glom Filt Rate - Afr Amer 111 mL/min (>60); Estimated Creatinine Clearance 112.56 ml/min; Glucose 99 mg/dL (74-106); Potassium 3.9 mmol/L (3.5-5.1); Sodium Level 139 mmol/L (136-145)
--- NOTE | 2023-05-10 11:25 | EDS_ITS ---
HPI History of Present Illness Chief Complaint: Nausea/Vomiting Informant: patient Narrative Narrative: 27-year-old male presented to the emergency room with vomiting and diarrhea. Patient states he started a new job at the beginning of April. 1 week ago he developed nausea vomiting diarrhea. He states he does not feel particularly stressed or anxious about his new job but notes that with his first job he had developed gastrointestinal symptoms and was related to the stress. He states that he has had bad food each of the past Fridays and most recently had poorly stored [place] food. He wonders if that gave it to him. He denies any fevers. No significant pain. PFSH PFSH Home Medications ondansetron 4 mg disintegrating tablet 4 mg PO Q6H PRN PRN Nausea #15 tabs 05/10/23 [Rx Last Taken Unknown] Allergy/AdvReac Type Severity Reaction Status Date / Time amoxicillin Allergy Unknown Verified 05/10/23 09:50 Penicillins [PCN] Allergy Unknown Verified 05/10/23 09:50 Surgical History History of tonsillectomy Social History Smoking Status: Never smoker EXAM Physical Exam Const Vital Signs: 05/10/23 09:49 05/10/23 10:39 05/10/23 13:00 Temperature 96.7 F L 98.3 F Temperature Source Temporal Oral Pulse Rate 87 48 L 70 Respiratory Rate 16 16 16 Blood Pressure 111/80 112/43 L 128/68 H Blood Pressure Mean 90 66 88 Pulse Ox 100 97 Oxygen Delivery Method Room Air Room Air Room Air MDM MDM MDM Narrative Medical decision making narrative: Basic blood work was obtained and was negative. White count 4.7 slight elevation in bilirubin of uncertain significance. Lipase is normal. The patient may have a simple viral gastroenteritis. I do not think this is bacterial in nature. This could also be stress-induced. He notes he has not been eating as well. Though he does not feel anxious about work like he did with his prior job that certainly a possibility unfortunately there is no test for this. I will write for him to have Zofran and Imodium as needed following up with primary care. Instructions to closely monitor food intake and ensure adequate caloric intake. Lab Data Attestation: I reviewed the patient's lab results. Labs: Laboratory Results - last 24 hr 05/10/23 10:30 WBC 4.7 RBC 5.50 Hgb 15.5 Hct 46.8 MCV 85.1 MCH 28.2 MCHC 33.1 RDW Std Deviation 39.9 RDW Coeff of Baltazar 12.9 Plt Count 220 MPV 11.7 Immature Gran % (Auto) 0.200 Neut % (Auto) 53.2 Lymph % (Auto) 33.8 [place] % (Auto) 10.0 Eos % (Auto) 1.9 Baso % (Auto) 0.9 Absolute Neuts (auto) 2.5 Absolute Lymphs (auto) 1.59 Nucleated RBC % 0 Sodium 139 Potassium 3.9 Chloride 106 Carbon Dioxide 27.0 Anion Gap 6 BUN 11 Creatinine 1.04 Estim Creat Clear Calc 112.56 Est GFR (MDRD) Af Amer 111 Est GFR (MDRD) Non-Af 92 BUN/Creatinine Ratio 10.6 Glucose 99 Calcium 9.9 Total Bilirubin 1.20 H Direct Bilirubin 0.31 H AST 13 L ALT 18 Alkaline Phosphatase 60 Total Protein 7.6 Albumin 4.4 Globulin 3.2 Lipase 25 Discharge Plan Triage Chief Complaint: Nausea/Vomiting ED Provider: Eliezer Conti Dx/Rx/DC Orders Clinical Impression: Nausea vomiting and diarrhea, Weight loss Instructions: ED Vomiting and Diarrhea ... Prescriptions: New ondansetron [ondansetron] 4 mg tablet,disintegrating 4 mg PO Q6H PRN PRN (Reason: Nausea) Qty: 15 0RF Primary Care Provider: Jaclyn Chin Referrals: Jaclyn Chin PA [Primary Care Provider] - 3-5 Days if not improving Disposition Disposition: Home, Self Care Discharge Date/Time: 05/10/23 13:49
[2023-05-10] MEDS: Ondansetron 4 MG/2 ML Vial IV (11:39)
[2023-05-10] MEDS: 0.9% Normal Saline 1,000 ML 1000 ML IV (11:39)
[2023-05-10 12:12] LABS: AST(SGOT) 13 U/L (15-37); Alanine Aminotransfer ALT/SGPT 18 U/L (16-61); Albumin, Serum 4.4 g/dL (3.2-5.0); Alkaline Phosphatase 60 U/L (45-117); Bilirubin, Direct 0.31 mg/dL (0.00-0.30); Globulin 3.2 g/dL (2.2-4.2); Lipase 25 U/L (13-75); Protein, Total 7.6 g/dL (6.4-8.2)
[2023-05-10 13:00] VITALS: BP 128/68; PULSE 70; RESP 16
== END 2023-05-10 13:49 | disposition home or self-care (01) ==
PROVIDERS: Emergency Provider Emergency Medicine; PCP Physician Assistant; Visit Provider Emergency Medicine
DX: R11.2 Nausea with vomiting, unspecified (principal); R19.7 Diarrhea, unspecified; R63.4 Abnormal weight loss
CPT/HCPCS: 80048; 80076; 83690; 85025; 96361; 96374; 99283; J2405

== ENCOUNTER 2024-01-29 17:34 | Emergency (ER) | payer MEDICAID, SELFPAY ==
[2024-01-29 17:34] VITALS: BP 127/65; PULSE 54; RESP 15; TEMP 36.1; O2SAT 100; BMI 22.2
--- NOTE | 2024-01-29 17:53 | EKG12_ITS ---
Test Reason : CP Blood Pressure : / mmHG Vent. Rate : 042 BPM Atrial Rate : 042 BPM P-R Int : 138 ms QRS Dur : 098 ms QT Int : 400 ms P-R-T Axes : 058 087 066 degrees QTc Int : 334 ms Marked sinus bradycardia Abnormal ECG Confirmed by Talat Ferguson ([id number]), photographic editor LEAH ARMENTA ([id number]) on 01/30/2024 11:59:29 AM Referred By: Confirmed By:Talat Ferguson
--- NOTE | 2024-01-29 17:58 | NURSING ---
NO OLD EKGS
--- NOTE | 2024-01-29 18:03 | RAD_ITS ---
INDICATION: cp EXAMINATION/TECHNIQUE: X-RAY - XR Chest 2 Views COMPARISON: FINDINGS: LINES/DEVICES: None. LUNGS: No consolidation, edema or effusion. No pneumothorax. MEDIASTINUM AND CARDIOVASCULAR STRUCTURES: Cardiac silhouette not enlarged. Central airways and mediastinal contour are unremarkable. BONES AND SOFT TISSUES: Unremarkable. RAD/Chest PA and Lateral IMPRESSION: No radiographic evidence of acute cardiopulmonary disease. Electronically Signed: Kirill Solorio DO at 18:18 EDT Reading Location ID and State: [facility] / [place] Tel [phone], Service support ,
--- NOTE | 2024-01-29 18:10 | EDS_ITS ---
HPI History of Present Illness Chief Complaint: Chest Other Informant: patient Onset/Context/Timing Onset: Today and Yesterday Activity at onset: gradual Timing: Intermittent Quality: Positive for Pain Location: Right Chest Current Severity: Mild Maximum Severity: Mild Worsened By: Movement of Arm and Movement of Torso Associated Symptoms: Negative for Nausea, Vomiting, Diaphoresis, Dyspnea, Cough, Fever, Lightheadedness, Acid Reflux or Palpitations Narrative Narrative: 28-year-old male no seen past medical history. Describes right-sided chest, shoulder and back pain that began yesterday around 730. He says worse with movement of his right arm. He denies shortness of breath. He denies any pleuritic pain. He denies any hemoptysis. No history of recent URI. No history of DVT or PE. No leg pain or swelling. No risk factors for DVT. Since typically a dull pain 3-10 with use of his right shoulder hurts most of 5-6 out of 10. Denies any fall injury or trauma. No history of pneumothorax. Not associated with exertion. Prior Similar Symptoms: No Recent Illness/Hospitalization: No CVD Risk Factors: Negative for Hypertension PE Risk Factors: Negative for Recent Travel/Surgery, Recent Immobilization, Prior DVT or PE, Cancer or OCP + Smoking + >/=35 TAD Risk Factors: Negative for Marfan's Syndrome or Hypertension PFSH PFSH Medical History no medical history no medical history Home Medications ?Medication ?Instructions ?Recorded ?Last Taken ?Type NK 01/29/24 Unknown History Allergy/AdvReac Type Severity Reaction Status Date / Time amoxicillin Allergy Unknown Verified 01/29/24 17:36 Penicillins (PCN) Allergy Unknown Verified 01/29/24 17:36 Surgical History History of tonsillectomy Social History household members: family Smoking Status: Never smoker ROS ROS ED ROS Narrative Denies recent illness. Right-sided chest and shoulder pain. Review of Systems ROS Unobtainable: Denies due to encephalopathy Constitutional Constitutional ED: Denies chills or fever(s) Eyes Eyes: Reports none ENT ENT ED: Denies ear pain, rhinorrhea or sore throat Cardiovascular Cardiovascular: Reports as per HPI and chest pain; Denies orthopnea, palpitations, paroxysmal nocturnal dyspnea or racing heartbeat Respiratory/Chest Respiratory/Chest: Denies cough, dyspnea, dyspnea on exertion, orthopnea or paroxysmal nocturnal dyspnea Gastrointestinal Gastrointestinal: Denies abdominal pain, constipation, diarrhea, melena, nausea or vomiting Genitourinary Genitourinary ED: Denies dysuria or hematuria Musculoskeletal Musculoskeletal: Denies arthralgias, back pain, myalgias or neck pain Integumentary Denies abscess or Abrasions Neurologic Neurologic: Denies headache(s), paresthesias or weakness Psychiatric Psychiatric: Denies anxiety or depression Endocrine Endocrinology: Denies cold intolerance or heat intolerance Hematologic/Lymphatic Hematologic/Lymphatic: Denies easy bleeding, easy bruising or lymphadenopathy Allergic/Immunologic Allergic/Immunologic ED: Denies mouth swelling, tongue swelling or urticaria EXAM Physical Exam Narrative Exam Narrative: 28-year-old male vital signs stable afebrile. Pulse ox 100% on room air no signs hypoxia. No distress. H EENT exam unremarkable. Neck nontender. Lungs clear to auscultation bilateral. Heart regular rate and rhythm no murmur. Chest wall and ribs completely nontender. Right axilla nontender. Right shoulder nontender. Normal range of motion of his right shoulder. No swelling. No tenderness or redness. No warmth. There is no reproducible chest or rib or shoulder pain. Abdomen soft nontender. Back nontender. Moving all 4 extremities. Equal symmetrical radial pulses. 5 out of 5 corporate development analyst strength. Lower extremities are nontender. Calves are nontender without edema or cords. Normal range of motion. Back exam normal and nontender. Neurologically is awake and alert no focal motor deficits. Const Vital Signs: 01/29/24 17:34 01/29/24 17:47 Temperature 96.9 F L Temperature Source Temporal Pulse Rate 54 L Respiratory Rate 15 Respiratory Effort Normal Non-Labored Blood Pressure 127/65 H Blood Pressure Mean 85 Pulse Ox 100 Oxygen Delivery Method Room Air Positive well nourished and well developed; Negative for obese, cachectic, contractures or unkempt General Appearance ED: well developed and NAD; Negative for unkempt, cachectic, contractures or pallor Nutritional Appearance: Negative for cachectic or obese HEENT Reports moist mucous membranes normocephalic and atraumatic; Negative for trauma or tenderness Eyes PERRL and EOMs intact bilaterally General Eye ED: Negative for pale conjunctiva or scleral icterus Neck no lymphadenopathy, supple and no JVD General: Negative for tenderness or other Chest Wall inspection of chest normal and palpation of chest normal Chest: Negative for tenderness Resp normal respiratory effort and clear to auscultation bilaterally Effort and Inspection: Negative for respiratory distress Auscultation: Negative for rales, rhonchi, wheezes or diminished lung sounds Cardio regular rate, regular rhythm, S1 normal heart sound, S2 normal heart sound and no murmurs Rate: Negative for bradycardia or tachycardic Rhythm: Negative for abnormal rhythm Peripheral Pulses: pulses 2+ throughout GI normal to inspection, nondistended, normoactive bowel sounds, soft to palpation, non-tender, non-distended and no masses; Negative for hepatosplenomegaly Auscultation: Negative for hyperactive bowel sounds Palpation: Negative for splenomegaly, mass or other Back/Spine no CVA tenderness and no thoracic nor lumbar tenderness General Back: Negative for CVA tenderness Cervical Spine: Negative for cervical spine tenderness Extremity normal to inspection General Extremety ED: Negative for edema, pulses abnormal or tenderness General Extremity: Negative for edema or pulses abnormal Neuro oriented x3 and CN's II-XII intact bilaterally Sensorium / Orientation: awake, alert, oriented to person, oriented to place and oriented to time; Negative for confused, lethargic, stuporous or other Motor Exam: strength 5/5 throughout; Negative for general weakness or strength abnormal Psych mental status grossly normal Appearance: Negative for unkempt Attitude: No agitated Mood & Affect: Negative for depressed, anxious or tearful Skin no rashes or lesions noted and no wounds General Skin Exam: Negative for jaundice or pallor Rashes: No rashes noted Trauma: Negative for abrasion, laceration or puncture MDM MDM MDM Narrative Medical decision making narrative: 28-year-old male with atypical nonreproducible right chest and shoulder pain. No history of DVT or PE or risk factors. Normal exam. Chest x-ray and EKG being obtained. Repeat exam patient is doing well at 619. He and I went over his chest x-ray a nd EKG. Motrin for pain. Outpatient follow-up if not improving. I do not think he needs any other tests or imaging. History & Record Review Discussion w/independent historian: Patient Lab Data Attestation: I reviewed the patient's lab results. Radiography Chest X-Ray - ED: 2 View, Read by ED Physician, Normal, Heart, Lungs, Mediastinum, Bony Structures and No Acute Disease Diagnostic Testing: Chest x-ray, 2 views, AP and lateral, interpreted by myself shows no acute abnormality. Normal cardiac silhouette. Normal lungs. No infiltrate. No pneumothorax. Rhythm Strip Rhythm Strip: Sinus bradycardia Rate: 42 Ectopy: None EKG Initial EKG: Attestation: I personally reviewed and interpreted this EKG as follows: Interpretation: Sinus Rhythm, No Acute Injury Pattern and Sinus B radycardia Comments: Sinus bradycardia rate of 42 no acute signs of WA or ischemia. Discharge Plan Triage Chief Complaint: Chest Other ED Provider: Cody Erickson Dx/Rx/DC Orders Clinical Impression: Atypical chest pain Instructions: ED Chest Pain, Uncertain Cause Prescriptions: No Action NK Primary Care Provider: Jaclyn Chin Referrals: Jaclyn Chin PA [Primary Care Provider] - 1 Week if not improving Activity Restrictions/Additional Instructions: Your EKG and x-ray were unremarkable. Motrin for pain and inflammation. Follow-up if not improving. Return if you are feeling worse. Print Language: Estonian
[2024-01-29 18:33] VITALS: BP 118/65; PULSE 57; RESP 14; TEMP 36.1; O2SAT 100
== END 2024-01-29 18:35 | disposition home or self-care (01) ==
LOC: ED 18:21
PROVIDERS: Emergency Provider Emergency Medicine; PCP Physician Assistant; Visit Provider Emergency Medicine
DX: R07.89 Other chest pain (principal); M25.511 Pain in right shoulder
CPT/HCPCS: 71046; 93005; 99282

== ENCOUNTER 2024-02-04 19:17 | Emergency (ER) | payer MEDICAID, SELFPAY ==
[2024-02-04 19:17] VITALS: BP 98/50; PULSE 79; RESP 18; TEMP 36.3; O2SAT 98; BMI 21.9
--- NOTE | 2024-02-04 21:06 | EDS_ITS ---
HPI History of Present Illness Chief Complaint: Chest Other Informant: patient Onset/Context/Timing Onset: Weeks (1) Activity at onset: sudden Timing: Continuous Quality: Positive for Stabbing Location: Right Chest Worsened By: Movement of Arm Relieved By: Nothing Associated Symptoms: Negative for Nausea, Vomiting, Diaphoresis, Dyspnea, Cough, Fever, Lightheadedness, Acid Reflux or Palpitations Narrative Narrative: Patient presents with chest pain that has been waxing and waning over the past week. Patient states it began rather suddenly last week. Patient states it has been constant but started to feel better over the weekend. Patient states she went back to work tonight and the pain became worse. Patient states the pain is over the right upper chest. Patient states it is worse when he moves his arm. Patient states that at work he has to do a lot of work with his arms. Patient describes his pain as stabbing. Patient denies any shortness of breath or cough. Patient denies any nausea or vomiting. Patient denies any fevers or chills. CVD Risk Factors: Negative for Hypertension, Diabetes, Hypercholesterolemia, Family History 1' </=55 or Smoking PE Risk Factors: Negative for Recent Travel/Surgery, Recent Immobilization, Prior DVT or PE or Cancer PFSH PFSH Medical History no medical history no medical history Allergy/AdvReac Type Severity Reaction Status Date / Time amoxicillin Allergy Unknown Verified 02/04/24 19:17 Penicillins (PCN) Allergy Unknown Verified 02/04/24 19:17 Surgical History History of tonsillectomy Social History household members: family Smoking Status: Never smoker ROS ROS ED Constitutional Constitutional ED: Denies chills or fever(s) Eyes Eyes: Reports change in vision; Denies blurry vision ENT ENT ED: Denies rhinorrhea or sore throat Cardiovascular Cardiovascular: Reports chest pain; Denies palpitations Respiratory/Chest Respiratory/Chest: Denies cough or dyspnea Gastrointestinal Gastrointestinal: Denies nausea or vomiting Genitourinary Genitourinary ED: Denies dysuria or hematuria Musculoskeletal Musculoskeletal: Denies back pain or neck pain Integumentary Denies abscess or rash Neurologic Neurologic: Denies headache(s) or weakness Allergic/Immunologic Allergic/Immunologic ED: Denies mouth swelling or urticaria EXAM Physical Exam Const Vital Signs: 02/04/24 19:17 02/04/24 20:47 02/04/24 22:17 Temperature 97.3 F L Temperature Source Temporal Pulse Rate 79 49 L Respiratory Rate 18 16 Respiratory Effort Normal Blood Pressure 98/50 L 128/66 H Blood Pressure Mean 66 86 Pulse Ox 98 100 Oxygen Delivery Method Room Air Room Air 02/04/24 23:14 Temperature 98.4 F Temperature Source Pulse Rate 79 Respiratory Rate 16 Respiratory Effort Blood Pressure 129/70 H Blood Pressure Mean 89 Pulse Ox 97 Oxygen Delivery Method Positive well nourished and well developed General Appearance ED: well developed and NAD HEENT Reports moist mucous membranes Chest Wall inspection of chest normal Chest Narrative: There is tenderness to palpation over the right upper chest wall. There is no edema or ecchymosis. There is no subcutaneous emphysema noted. Resp normal respiratory effort and clear to auscultation bilaterally Cardio regular rate and regular rhythm GI soft to palpation, non-tender and non-distended Extremity normal to inspection Neuro oriented x3, CN's II-XII intact bilaterally and no sensory deficits noted Sensorium / Orientation: awake and alert Motor Exam: strength 5/5 throughout Psych mental status grossly normal Heart Score History: Slightly/Non-Suspicious ECG: Normal Age: </= 45 years Risk Factors: No Risk Factors Troponin: </= Normal Limit Score: 0 MDM MDM MDM Narrative Medical decision making narrative: Differential diagnosis includes musculoskeletal pain, anxiety, pneumonia, pneumothorax, cardiac dysrhythmia, cardiac ischemia, and electrolyte abnormality. EKG will be obtained to assess for cardiac dysrhythmia and cardiac ischemia. Chest x-ray will be obtained to assess for pneumonia and pneumothorax. CBC will be obtained to assess for leukocytosis and anemia. Basic metabolic profile will be obtained to assess for electrolyte abnormality and renal function. High-sensitivity troponin will be obtained to assess for cardiac ischemia. Lab Data Attestation: I reviewed the patient's lab results. Lab results narrative: CBC was reviewed and was within normal limits. Basic metabolic profile was reviewed and was within normal limits. High-sensitivity troponin was reviewed and was normal at 3. Labs: Laboratory Results - last 24 hr 02/04/24 22:25 WBC 8.8 RBC 5.47 Hgb 15.3 Hct 46.6 MCV 85.2 MCH 28.0 MCHC 32.8 RDW Std Deviation 39.3 RDW Coeff of Baltazar 12.7 Plt Count 227 MPV 11.1 Immature Gran % (Auto) 0.300 Neut % (Auto) 62.4 Lymph % (Auto) 26.9 [place] % (Auto) 8.6 Eos % (Auto) 1.3 Baso % (Auto) 0.5 Absolute Neuts (auto) 5.5 Absolute Lymphs (auto) 2.37 Nucleated RBC % 0 Sodium 138 Potassium 3.9 Chloride 106 Carbon Dioxide 27.0 Anion Gap 5 BUN 15 Creatinine 0.99 Estim Creat Clear Calc 116.28 Est GFR (MDRD) Af Amer 117 Est GFR (MDRD) Non-Af 96 BUN/Creatinine Ratio 15.2 Glucose 94 Calcium 9.5 Troponin I High Sens 3 Radiography Chest X-Ray - ED: 2 View, Read by ED Physician, Read by Radiologist and No Acute Disease Diagnostic Testing: Clinical Impression(s) from Imaging Studies Chest X-Ray 02/04/24 22:30 IMPRESSION: No acute radiographic abnormalities. Electronically Signed: Matthew Kaplan MD at 23:13 EDT , [place] and lateral chest x-ray was obtained. There are 2 views. On my independent interpretation, lung pete are clear. There is normal cardiac silhouette. Bony thorax is normal. There is no acute process noted. Radiologist also inte rpreted the x-ray and agrees. EKG Initial EKG: Attestation: I personally reviewed and interpreted this EKG as follows: Interpretation: No Acute Injury Pattern and Sinus Bradycardia (53) Comments: EKG was obtained. On my independent interpretation, it showed a sinus bradycardia with a rate of 53. WA interval, QRS interval, and QTc intervals were all normal. [place] was normal. There is borderline ST elevation diffusely consistent with early repolarization. This was unchanged compared to previous EKG dated 01/29/2024 Prior EKG tracings: available for review Prior: Unchanged (01/29/2024) Treatment and Re-Evaluation :: Patient was given a dose of Toradol here. Patient was advised of his findings. Patient has a HEART score of 0. Patient was advised that this is low risk for acute cardiac event. Patient was instructed to continue using Tylenol or ibuprofen as needed for his pain. Patient was instructed to use ice to the area. Patient was given restrictions for work. Patient was instructed to return if worse in any way. Patient understood and was agreeable with the plan. All questions were answered. Discharge Plan Triage Chief Complaint: Chest Other ED Provider: James Alarcon Dx/Rx/DC Orders Clinical Impression: Atypical chest pain, Muscle strain of chest wall Instructions: ED Chest Pain, Uncertain Cause, ED Strain Chest Wall Stand Alone Forms: Work Status Form Primary Care Provider: Jaclyn Chin Referrals: Jaclyn Chin, RDOOLFO [Primary Care Provider] - 5-7 Days Print Language: Welsh Disposition Disposition: Home, Self Care Discharge Date/Time: 02/04/24 23:16
--- NOTE | 2024-02-04 22:04 | EKG12_ITS ---
Test Reason : DYSRHYTHMIA Blood Pressure : / mmHG Vent. Rate : 053 BPM Atrial Rate : 053 BPM P-R Int : 144 ms QRS Dur : 100 ms QT Int : 400 ms P-R-T Axes : 029 088 062 degrees QTc Int : [address] elevation, consider early repolarization Borderline ECG Confirmed by MARINO SUTTON, BRAD ([id number]), makeup editor ALBINA ARCHULETA ([id number]) on 02/06/2024 6:31:22 AM Referred By: Confirmed By:MIGUEL PICHARDO MD
[2024-02-04 22:17] VITALS: BP 128/66; PULSE 49; RESP 16; O2SAT 100
[2024-02-04] MEDS: 0.9% Normal Saline (1000mL) 1,000 ML 1000 ML IV (22:25)
[2024-02-04] MEDS: Ketorolac 30 MG/ML Syringe IV (22:25)
--- NOTE | 2024-02-04 22:30 | RAD_ITS ---
INDICATION: Chest pain EXAMINATION/TECHNIQUE: X-RAY - XR Chest 2 Views COMPARISON: 01/29/2024. FINDINGS: The lungs are clear. The cardiomediastinal silhouette is unremarkable. No pleural effusion or pneumothorax. No acute osseous abnormalities. RAD/Chest PA and Lateral IMPRESSION: No acute radiographic abnormalities. Electronically Signed: Matthew Kaplan MD at 23:13 EDT ,
[2024-02-04 22:34] LABS: Absolute Lymphocyte Count 2.37 X10^3/uL (0.83-4.51); Absolute Neutrophil Count 5.5 X10^3/uL (2.0-7.7); Basophil# 0.04 X10^3/uL; Basophil% 0.5 % (0-1); Eosinophil# 0.11 X10^3/uL; Eosinophils% 1.3 % (0-5); Hematocrit 46.6 % (40-54); Hemoglobin 15.3 g/dL (13.0-16.5); Lymphocyte # 2.37 X10^3/ul (0.83-4.51); Lymphocyte % 26.9 % (19-41); Mean Corp Hgb Conc 32.8 g/dL (32-36); Mean Corpuscular Volume 85.2 fL (80-94); Mean Platelet Vol. 11.1 fl (6.2-12.0); Monocyte# 0.76 X10^3/uL; Monocyte% 8.6 % (0-10); NRBC Flagged by Analyzer 0 % (0-5); Neutrophil # 5.49 X10^3/uL (2.7-7.7); Neutrophil % 62.4 % (47-70); Platelet Count 227 K/mm3 (150-450); RBC Distribution Width CV 12.7 % (11.6-14.6); RBC Distribution Width SD 39.3 fl (35.1-43.9); Red Blood Count 5.47 M/mm3 (4.6-6.2); White Blood Count 8.8 K/mm3 (4.4-11.0)
[2024-02-04 22:59] LABS: Anion Gap 5 (5-15); BUN 15 mg/dL (7-18); BUN/Creat Ratio 15.2 RATIO (10-20); Calcium,Total 9.5 mg/dL (8.5-10.1); Chloride 106 mmol/L (98-107); Creatinine, Serum 0.99 mg/dL (0.70-1.30); EST Glomerular Filtration Rate 96 mL/min (>60); Est Glom Filt Rate - Afr Amer 117 mL/min (>60); Estimated Creatinine Clearance 116.28 ml/min; Glucose 94 mg/dL (74-106); Potassium 3.9 mmol/L (3.5-5.1); Sodium Level 138 mmol/L (136-145); Troponin-I HS 3 pg/mL (3.0-78.0)
[2024-02-04 23:14] VITALS: BP 129/70; PULSE 79; RESP 16; TEMP 36.9; O2SAT 97
== END 2024-02-04 23:16 | disposition home or self-care (01) ==
PROVIDERS: Emergency Provider Emergency Medicine; PCP Physician Assistant; Visit Provider Emergency Medicine
DX: S29.011A Strain of muscle and tendon of front wall of thorax, initial encounter (principal); X58.XXXA Exposure to other specified factors, initial encounter
CPT/HCPCS: 71046; 80048; 84484; 85025; 93005; 96374; 99283; J7030; A4216

== ENCOUNTER 2024-09-16 20:42 | Emergency (ER) | payer SELFPAY ==
[2024-09-16 20:42] VITALS: BP 110/63; PULSE 78; RESP 18; TEMP 36.8; O2SAT 98; BMI 22.6
[2024-09-16] MEDS: Ketorolac 30 MG/ML Syringe IM (22:21)
[2024-09-16] MEDS: Orphenadrine 60 MG/2 ML Ampul IM (22:22)
--- NOTE | 2024-09-16 22:45 | RAD_ITS ---
INDICATION: pain EXAMINATION/TECHNIQUE: X-RAY - XR Spine Lumbar 2 or 3 Views COMPARISON: None. FINDINGS: VERTEBRAE: No fracture or subluxation. Mild facet arthrosis. No erosive changes. SOFT TISSUES: Unremarkable. INCLUDED ABDOMEN: Visualized abdomen is unremarkable. RAD/Lumbar Spine 2 or 3 Views IMPRESSION: Mild facet arthrosis. No acute abnormality. Electronically Signed: Geo Claudio DO at 23:41 EST ,
--- NOTE | 2024-09-16 23:05 | EDS_ITS ---
HPI History of Present Illness Chief Complaint: Back Informant: patient Narrative Narrative: Patient is a 28-year-old male with no significant past medical history. 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 He states that he does this repetitively for multiple hours. He states he does not remember 1 certain motion but that he awoke and had pain in his left mid to low back that was worse with motion. He states it was worse while doing his job. He denies any numbness tingling or weakness. He denies any loss of bowel bladder control or IV drug use. He states that he was having difficulty doing his job because of the increased pain with the repetitive motion and therefore comes to the hospital for evaluation. PFSH PFSH no medical history Home Medications ?Medication ?Instructions ?Recorded ?Last Taken ?Type methocarbamol 500 mg tablet 1,000 mg (2 x 500 mg) PO 4X/DAY 09/16/24 Unknown Rx PRN Muscle pain/spasm #56 tabs Allergy/AdvReac Type Severity Reaction Status Date / Time amoxicillin Allergy Unknown Verified 09/16/24 20:43 Penicillins (PCN) Allergy Unknown Verified 09/16/24 20:43 Surgical History History of tonsillectomy Social History household members: family Smoking Status: Never smoker ROS ROS ED Constitutional Constitutional ED: Denies chills or fever(s) Eyes Eyes: Denies change in vision ENT ENT ED: Denies sore throat Cardiovascular Cardiovascular: Denies chest pain Respiratory/Chest Respiratory/Chest: Denies cough or dyspnea Gastrointestinal Gastrointestinal: Denies abdominal pain, diarrhea, nausea or vomiting Genitourinary Genitourinary ED: Denies dysuria or hematuria Musculoskeletal Musculoskeletal: Reports back pain Integumentary Denies rash Neurologic Neurologic: Denies headache(s), paresthesias or weakness Hematologic/Lymphatic Hematologic/Lymphatic: Denies easy bleeding or easy bruising EXAM Physical Exam Const Vital Signs: 09/16/24 20:42 Temperature 98.2 F Temperature Source Oral Pulse Rate 78 Respiratory Rate 18 Blood Pressure 110/63 Blood Pressure Mean 78 Pulse Ox 98 Oxygen Delivery Method Room Air Positive well nourished and well developed General Appearance ED: well developed; Negative for pallor HEENT HEENT Narrative: Normocephalic atraumatic Eyes PERRL and EOMs intact bilaterally General Eye ED: Negative for scleral icterus Neck supple Resp normal respiratory effort and clear to auscultation bilaterally Cardio regular rate and regular rhythm Back/Spine no CVA tenderness Back/Spine Narrative: No bony deformity or step-off of the thoracic or lumbar spine no midline tenderness to palpation There is left paralumbar tenderness and spasm noted that worsens with extension and sidebending and rotation No saddle anesthesia. Negative straight leg raise. No clonus or Babinski. Patellar reflexes are plus 2 out of 4 bilaterally Extremity normal to inspection Neuro oriented x3, CN's II-XII intact bilaterally and no sensory deficits noted Sensorium / Orientation: alert Motor Exam: strength 5/5 throughout Psych mental status grossly normal Skin no rashes or lesions noted and no wounds Skin Narrative: No overlying soft tissue changes to suggest trauma or infection General Skin Exam: Negative for jaundice or pallor MDM MDM MDM Narrative Medical decision making narrative: Patient arrived to the ER with stable vitals. He denied loss of bowel or bladder control or IV drug use going against cauda equina or epidural abscess. He did not have hematuria or dysuria going against UTI/pyelonephritis or kidney stone. With concern potential compression fracture or spondylolisthesis I did order an x-ray. X-ray revealed no acute findings and after treatment with Toradol and Norflex the patient did report feeling better. Without radicular symptoms I do not feel this is lumbar radiculopathy/nerve compression. His symptoms and exam are most consistent with lumbosacral strain and therefore will be given symptomatic care and is otherwise safe for discharge. History & Record Review Discussion w/independent historian: Patient Radiography Diagnostic Testing: Lumbosacral x-ray as interpreted by the emergency medicine physician reveals no acute compression fracture or spondylolisthesis Discharge Plan Triage Chief Complaint: Back ED Provider: Shawn Wynne Dx/Rx/DC Orders Clinical Impression: Acute myofascial strain of lumbosacral region Instructions: ED Back Sprain/Strain Prescriptions: New methocarbamol 500 mg tablet 1,000 mg PO 4X/DAY PRN (Reason: Muscle pain/spasm) Qty: 56 0RF Primary Care Provider: Care Physician,No Primary Referrals: Srinivasan Bennett MD [Med Staff - Active Staff] - Care Physician,No Primary [Primary Care Provider] - Activity Restrictions/Additional Instructions: Please continue with Tylenol and/or Motrin for pain control. Add ove [id number] IcyHot or lidocaine patches for improved symptom relief and take the muscle relaxer as directed. Continue to stretch and heat the back to reduce pain and speed healing and return to the ER should you have any further concerns Print Language: Russian Disposition Disposition: Home, Self Care
[2024-09-16 23:16] VITALS: BP 118/74; PULSE 78; RESP 16; TEMP 36.6; O2SAT 98
== END 2024-09-16 23:17 | disposition home or self-care (01) ==
PROVIDERS: Emergency Provider Emergency Medicine; Visit Provider Emergency Medicine
DX: S39.012A Strain of muscle, fascia and tendon of lower back, initial encounter (principal); X50.0XXA Overexertion from strenuous movement or load, initial encounter
CPT/HCPCS: 72100; 96372; 96374; 99282